=== PATIENT | male | born 2000 | race Caucasian/White ===

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

== ENCOUNTER 2024-09-18 13:47 | Emergency (ER) | payer BC, SELFPAY ==
[2024-09-18 14:16] VITALS: BP 124/75; PULSE 66; RESP 20; TEMP 36.3; O2SAT 98
--- NOTE | 2024-09-18 14:45 | ED.GENADULT ---
HPI - General Adult General Chief complaint: Skin/Abscess/Foreign Body Stated complaint: discolored toe Time Seen by Provider: 09/18/24 14:45 Source: patient, RN notes reviewed and old records reviewed Mode of arrival: ambulatory Limitations: no limitations History of Present Illness [facility] narrative: 24-year-old male presents to the [facility] with complaints of discoloration to great toe and lateral aspect of the distal foot when he takes his boots off. States that he wear steel toe boots. Has a callus in place to the great toe. No discoloration that he describes on exam. Denies any pain, numbness. Onset (ago): week(s) (2) Related Data Home Medications ?Medication ?Instructions ?Recorded ?Confirmed ?Last Taken ?Type olanzapine 15 mg tablet 15 mg PO DAILY 10/29/22 11/11/23 Unknown History Allergies Allergy/AdvReac Type Severity Reaction Status Date / Time No Known Allergies Allergy Verified 09/18/24 14:37 Review of Systems Review of Systems: All systems reviewed & are unremarkable except as noted in HPI and below Constitutional: Constitutional: Reports no additional constitutional complaints ENT: Reports system reviewed and no additional complaints, except as documented Cardiovascular: Cardiovascular: Reports no additional cardiovascular complaints, Denies chest pain and Denies dyspnea Respiratory: Respiratory: Reports no additional respiratory complaints, Denies chest congestion, Denies cough and Denies dyspnea Gastrointestinal: Gastrointestinal: Reports no additional gastrointestinal complaints, Denies abdominal pain, Denies nausea and Denies vomiting Musculoskeletal: Musculoskeletal: Reports no additional musculoskeletal complaints Integumentary/Breasts: Skin/Breast: Reports as per HPI [facility] Past Medical History Medical History Healthy adult male Surgical History Surgical History No history of previous surgery Social History Social History Smoking status: Current every day smoker Tobacco type: e-cigarettes/vaping Alcohol intake: current Substance use type: marijuana Lack of Transportation: No Lack of Food: Never True Current Housing: I Have Housing Concerned About Future Housing: No Difficulty Paying Gas/Electric Bills: No Difficulty Paying for Meds: No Currently Unemployed: No Education: High School Diploma/GED Difficulty w/ Childcare or Family Care: No Comments At the time of my signature, I reviewed and agree with the nursing past medical, surgical, social, and family history. There is no relevant family history pertinent to the patient complaint. Exam Const: General: cooperative, healthy appearing, comfortable, no acute distress, well developed, alert and well nourished Nutritional Appearance: well nourished Orientation/consciousness: patient oriented x3 Limitations: no limitations HENMT: Head: normal to inspection Eyes: General: appearance normal, both eyes and all related structures Alignment and Position: alignment normal Periorbital: periorbital findings normal Neck: Neck: normal visual inspection, full ROM, no lymphadenopathy and no meningeal signs Chest: Chest palpation & inspection: normal inspection of the chest Resp: Effort & Inspection: normal respiratory effort and able to speak in complete sentences Cardio: Rate: regular rate Skin: General skin exam: normal color and no rashes or lesions noted Lesions: no lesions Rashes: no rashes Wounds: no wounds Neuro: General: patient oriented x3, gait normal, tone normal, moves all extremities and no meningeal signs Cognition (Neuro): normal cognition Speech: normal speech Gait exam (Neuro): Normal gait present Extrem: General: normal to inspection, full ROM, capillary refill normal and normal gait Psych: Appearance: grossly normal and well kempt Mental Status: mental status grossly normal Speech and movement: Normal speech and movement present and Clear speech present Affect: normal affect Attitude: cooperative Course Course Level of Care: Express Care Visit Vital Signs Vital signs: Vital Signs Temperature 97.4 F L 09/18/24 14:16 Pulse Rate 66 09/18/24 14:16 Respiratory Rate 20 09/18/24 14:16 Blood Pressure 124/75 09/18/24 14:16 Pulse Oximetry 98 09/18/24 14:16 Temperature 97.4 F L 09/18/24 14:16 Pulse Rate 66 09/18/24 14:16 Respiratory Rate 20 09/18/24 14:16 Blood Pressure 124/75 09/18/24 14:16 Pulse Oximetry 98 09/18/24 14:16 Reviewed Medical Decision Making MDM Narrative Medical decision making narrative: Patient sitting comfortably in exam room. Nontoxic, vitals stable. Patient in no acute distress Patient presents for discoloration when he takes his steel toe boots off after work. No abnormal findings noted on exam Discussed possibly wearing a wider shoe, following up with primary care provider if symptoms continue Discharge instructions reviewed with patient, as well as provided in writing per nursing staff. The instructions also include specific and strict return/GO TO THE ER as well as f/u information. All questions have been answered, and the patient deny any further questions with discharge and discharge plan. Some parts of this dictation were generated by voice recognition software and may contain typographical and/or grammatical inaccuracies. Medical Records Medical records reviewed: Yes I reviewed the external patient's medical records. Vital Signs Vital Signs: Vital Signs Temperature 97.4 F L 09/18/24 14:16 Pulse Rate 66 09/18/24 14:16 Respiratory Rate 20 09/18/24 14:16 Blood Pressure 124/75 09/18/24 14:16 Pulse Oximetry 98 09/18/24 14:16 Temperature 97.4 F L 09/18/24 14:16 Pulse Rate 66 09/18/24 14:16 Respiratory Rate 20 09/18/24 14:16 Blood Pressure 124/75 09/18/24 14:16 Pulse Oximetry 98 09/18/24 14:16 Reviewed Lab Data Lab results reviewed: Yes I reviewed the patient's lab results. Labs: Reviewed Critical Care Time Critical Care Time Critical Care Time: No Discharge Plan Discharge Clinical Impression: Callus of toe Patient Disposition: Home, Self-Care Condition: Stable Additional Instructions: Change socks daily. Tried changing the issues you wear to a wider shoe. Follow-up with primary care provider if symptoms persist For new or worsening symptoms go directly to the emergency room Patient Language: Latvian Prescriptions: No Action olanzapine 15 mg tablet 15 mg PO DAILY Follow-up/Referrals: Karen,Clark Zapata PA-C [Primary Care Provider] - 1 Week ([facility] follow-up) Stand Alone Forms: Work/School Release IP Time of Disposition: 14:54
--- OUTSIDE RECORDS SUMMARY | 2024-09-27 20:40 | XMS_ITS | Encounter Summary ---
Author Organization [facility] Address [address] [place] [address] Care Team Providers Care Apparel Manager Name Role Phone Lulu Orr MD Unavailable Lulu Orr MD Primary Care Provider [phone] Reason for Visit * Reason Comments Sore Throat x 1 day c/o sore thr oat, headache, nausea. Encounter Details Date Type Department Care Team (Late st Contact Info) Description 06/13/2013 10:45 AM CDT Office Visit [facility] - Pediatrics [address] [place] [phone] Lulu Orr MD [address] [place] [phone] Acute pharyngitis (Primary Dx) Social History Tobacco Use Types Packs/Day Years Used Date Smoking Tobacco: Never Assessed Sex and Gender Information Value Date Recorded Sex Assigned at Not on file Gender Identity Not on file Sexual Orientation Not on file documented as of this encounter Last Filed Vital Signs Vital Sign Reading Time Taken Comments Blood Pressure - - Pulse - - Temperature 36.9 ??C (98.4 ??F) 06/13/2013 10:51 AM C DT Respiratory Rate - - Oxygen Saturation - - Inhaled Oxygen Concentration - - Weight 36.7 kg (80 lb 12.8 oz) 06/13/2013 10:51 AM CDT Height - - Body Mass Index - - documented in this encounter Patient Instructions * Patient Instructions* Lulu Orr MD - 06/13/2013 11:06 AM CDT Hector Alonzo most likely has viral sore throat, he tested negative for strep test here in the office, we have send off a throat culture which will be back in 3 days. We will call you with the results. In the mean while, if your child is older than 4 years, give him lozenges, and have him do salt andwater gargles for pain relief. For younger children cold liquids and ice cream numbs the pain and helps them stay hydrated. Use tylenol per dose chart for pain and fever as needed every four hours. Many prescription and over the counter medicines contain Tylenol (acetaminophen) and Advil( ibuprofen) Do not use/give more than one Tylenol or Advil containing product at a time. documented in this encounter Progress Notes * Alina Espinoza RN - 06/16/2013 9:36 AM CDTQuick Note: Phone call placed to patient's home to report negative throat culture results. No answer. Message left reporting the result and to notify office for any further questions or concerns. * Lulu Orr MD - 06/16/2013 9:01 AM CDTQuick Note: Please call the parent and let him/her know the results are normal. * Lulu Orr MD - 06/13/2013 1:49 PM CDT SUBJECTIVE: Hector Alonzo is a 13 y.o.brought by mother who complains of sore throat for 1 day(s) with feeling nauseous, no vomiting or diarrhea. Fever: No Headache:Yes Stomach ache:Yes URI symptoms: No, OBJECTIVE: Temp 98.4 ??F (Temporal Artery) Wt 36.651 kg (80 lb 12.8 oz) General appearance: alert, well appearing, and in no distress. Ears: bilateral TM's and external ear canals normal Nose: normal and patent, no erythema, discharge or polyps Oropharynx: erythematous and mucous membranes moist, pharynx normal without lesions Neck: supple, no significant adenopathy Lungs: clear to auscultation, no wheezes, rales or rhonchi, symmetric air entry Heart - regular rate and rhythm, normal S1 and S2, no murmurs Abdomen:NT, ND, normal BS's, no HSM ASSESSMENT: Pharyngitis possible Strep throat PLAN: See orders for this visit as documented in the electronic medical record Strep culture sent Symptomatic treatment discussed. documented in this encounter Plan of Treatment Not on file documented as of this encounter Procedures Procedure Name Priority Date/Time Associated Diagnosis Comments CULTURE STREP GROUP A Routine 06/13/2013 11:10 AM CDT Acute pharyngitis STREP A SCREEN - POINT OF CARE (AMB) Routine 06/13/2013 11:06 AM CDT Acute pharyngitis documented in this encounter Results * CULTURE STREP GROUP A (06/13/2013 11:10 AM CDT) Beta-Strep Culture, Group A Only Negative [facility] ACCOUNT BILL Miscellaneous samples (specimen) ENTIRE THROAT (SURFACE REGION OF NECK) / Unknown 06/13/2013 11:10 AM CDT 06/13/2013 9:15 PM CDT Narrative Resulting Agency Comment [facility] [address] ??[facility] [id number] Lulu Orr MD LAB - MICROBIOLOGY O RDERABLES [facility] ACCOUNT BILL * STREP A SCREEN - POINT OF CARE (AMB) (06/13/2013 11:06 AM CDT) Strep A Rapid POCT Negative Negative Strep A Internal Control NEGATIVE - POSITIVE Throat swab (specimen) ENTIRE THROAT (SURFACE REGION OF NECK) / Unknown Lulu Orr MD LAB - POINT OF CARE ORDERABLES documented in this encounter Visit Diagnoses Diagnosis Acute pharyngitis- Primary documented in this encounter Care Teams Apparel Manager Relationship Specialty Start Date End Date Lulu Orr MD PCP - Pediatrics 10/29/09 Lluu Orr MD PCP - General Pediatrics 09/30/11 04/02/14 documented as of this encounter
--- OUTSIDE RECORDS SUMMARY | 2024-09-27 20:40 | XMS_ITS | Encounter Summary ---
Author Organization [facility] Address [address] [place] [address] Care Team Providers Care It Telecom Technician Name Role Phone Lulu Orr MD Unavailable Lulu Orr MD Primary Care Provider [phone] Reason for Visit * Reason Comments Sore Throat Encounter Details Date Type Department Care Team (Late st Contact Info) Description 03/04/2013 9:40 AM CDT Office Visit [facility] - Pediatrics [address] [place] [phone] Lulu Orr MD [address] [place] [phone] Acute pharyngitis (Primary Dx); Tinea cruris Social History Tobacco Use Types Packs/Day Years Used Date Smoking Tobacco: Never Assessed Sex and Gender Information Value Date Recorded Sex Assigned at Not on file Gender Identity Not on file Sexual Orientation Not on file documented as of this encounter Last Filed Vital Signs Vital Sign Reading Time Taken Comments Blood Pressure - - Pulse - - Temperature 36.6 ??C (97.8 ??F) 03/04/2013 9:55 AM CD T Respiratory Rate - - Oxygen Saturation - - Inhaled Oxygen Concentration - - Weight 35.7 kg (78 lb 9.6 oz) 03/04/2013 9:55 AM CDT Height - - Body Mass Index - - documented in this encounter Patient Instructions * Patient Instructions* Lulu Orr MD - 03/04/2013 10:09 AM CDT Hector Alonzo most likely has [...] or Advil containing product at a time. Tinea Corporis( Ring Worm) Ring Worm is a skin infection. Although the infection looks like you have a worm under your skin, there is no worm. Ringworm may appear anywhere on the body except the scalp (head), feet, or hands. This infection happens most often in school or daycare children and athletes, but anyone can get it. It is spread by touching infected people, pets, or soil. Ringworm can be treated by taking medicine and keeping your skin clean and dry. With medicine, your ringworm infection will be gone in about two weeks. Use Lotrimin cream twice a day for 10- 14 days, use it for a few more days till after the rash clears up. The infection can live in the bottom layer of skin and may come back, if you stop using the medicine too soon. documented in this encounter Progress Notes * Alina Espinoza RN - 03/07/2013 10:14 AM CDTQuick Note: Phone call placed to patient's home to report negative throat culture results. No answer. Message left reporting the result and to notify office for any further questions or concerns. * Lulu Orr MD - 03/07/2013 9:45 AM CDTQuick Note: Please call the parent and let him/her know the results are normal. * Lulu Orr MD - 03/04/2013 9:56 AM CDT SUBJECTIVE: Hector Alonzo is a 12 y.o.brought by mother who complains of sore throat for 4 day(s). Fever: No Headache:Yes Stomach ache:No URI symptoms: Yes, cough since Wednesday He also has some dry skin on the shaft of his penis they did not know what they could put on it. OBJECTIVE: Temp 97.8 ??F (Temporal Artery) Wt 78 lb 9.6 oz (35.653 kg) General appearance: alert, well appearing, and in no distress. Ears: bilateral TM's and external ear canals normal Nose: normal and patent, no erythema, discharge or polyps Oropharynx: mucous membranes moist, pharynx normal without lesions Neck: supple, no significant adenopathy Lungs: clear to auscultation, no wheezes, rales or rhonchi, symmetric air entry Heart - regular rate and rhythm, normal S1 and S2, no murmurs Skin: erythematous scaly patch at the base of penis, extending some towards penis ASSESSMENT: Pharyngitis possible Strep throat Tinea Cruris PLAN: See orders for this visit as documented in the electronic medical record Strep culture sent Lotrimin cream local bid for 14 days. Symptomatic treatment discussed. documented in this encounter Plan of Treatment Not on file documented as of this encounter Procedures Procedure Name Priority Date/Time Associated Diagnosis Comments CULTURE STREP GROUP A Routine 03/04/2013 10:15 AM CDT Acute pharyngitis Tinea cruris STREP A SCREEN - POINT OF CARE (AMB) Routine 03/04/2013 10:13 AM CDT Acute pharyngitis Tinea cruris documented in this encounter Results * CULTURE STREP GROUP A (03/04/2013 10:15 AM CDT) Beta-Strep Culture, Group A Only Negative [facility] ACCOUNT BILL Miscellaneous samples (specimen) ENTIRE THROAT (SURFACE REGION OF NECK) / Unknown 03/04/2013 10:15 AM CDT 03/04/2013 5:44 PM CDT Narrative Resulting Agency Comment [facility] [place] [address] ??[facility] [id number] Lulu Orr MD LAB - MICROBIOLOGY O RDERABLES [facility] ACCOUNT BILL * STREP A SCREEN - POINT OF CARE (AMB) (03/04/2013 10:13 AM CDT) Strep A Rapid POCT Negative Negative Strep A Internal Control NEGATIVE - POSITIVE Throat swab (specimen) ENTIRE THROAT (SURFACE REGION OF NECK) / Unknown Lulu Orr MD LAB - POINT OF CARE ORDERABLES documented in this encounter Visit Diagnoses Diagnosis Acute pharyngitis- Primary Tinea cruris Dermatophytosis of groin and perianal area documented in this encounter Care Teams It Telecom Technician Relationship Specialty Start Date End Date Lulu Orr MD PCP - Pediatrics 10/29/09 Lulu Orr MD PCP - General Pediatrics 09/30/11 04/02/14 documented as of this encounter
--- OUTSIDE RECORDS SUMMARY | 2024-09-27 20:40 | XMS_ITS | Encounter Summary ---
Author Organization [facility] Address [address] [place] [address] Care Team Providers Care Customer Advisor Specialist Name Role Phone Lulu Orr MD Unavailable Tal Cuenca MD Primary Care Provider [phone] Reason for Visit * Reason Comments Pain Abdominal symptoms started yes terday Headache Cough Chills unsure of any fever Encounter Details Date Type Department Care Team (Late st Contact Info) Description 12/10/2014 2:30 PM CDT Office Visit [facility] - Pediatrics [address] [place] [phone] Tal Cuenca MD [address] [place] [address] [place] [phone] Viral pharyngitis (Primary Dx) Social History Tobacco Use Types Packs/Day Years Used Date Smoking Tobacco: Never Assessed Sex and Gender Information Value Date Recorded Sex Assigned at Not on file Gender Identity Not on file Sexual Orientation Not on file documented as of this encounter Last Filed Vital Signs Vital Sign Reading Time Taken Comments Blood Pressure - - Pulse - - Temperature 37 ??C (98.6 ??F) 12/10/2014 2:40 PM CDT Respiratory Rate - - Oxygen Saturation - - Inhaled Oxygen Concentration - - Weight 47.4 kg (104 lb 6.4 oz) 12/10/2014 2:40 P M CDT Height 165.7 cm (5' 5.25 ) 12/10/2014 2:40 PM CD T Body Mass Index 17.24 12/10/2014 2:40 PM CDT Body Mass Index Percentile 22.42% 12/10/2014 2:4 0 PM CDT Growth Chart: [facility] (Boys, 2-2 0 Years) documented in this encounter Patient Instructions * Patient Instructions* Tal Cuenca MD - 12/10/2014 3:36 PM CDT Supportive care reviewed. Discussed reasons to call back. Follow up as needed. Rest, tylenol, humidifier, etc documented in this encounter Progress Notes * Tal Cuenca MD - 12/10/2014 2:59 PM CDT Hector Alonzo, 14 y.o., male here with a complaint of nausea, headache, abdominal pain, and coughing. Pt has been ill for 2 days. Tactile fever. No V/D. Medications: none PE: Temp(Src) 98.6 ??F (Oral) Wt 47.356 kg (104 lb 6.4 oz) BMI 17.25 kg/m2 , Alert, NAD, HEENT: Ears Right: Normal Left: Normal Nose Discharge clear Throat injected Neck normal, neck supple, trachea midline, no significant adenopathy Chest: no increased work of breathing Lungs Respiratory effort normal, clear to auscultation, normal breath sounds bilaterally Heart Normal PMI. regular rate and rhythm, normal S1, S2, no murmurs or gallops. No results found for this visit on 12/10/14. Impression: ICD-9-CM 1. Viral pharyngitis 462 Plan: Supportive care reviewed. Discussed reasons to call back. Follow up as needed. Rest, tylenol, humidifier, etc documented in this encounter Plan of Treatment Not on file documented as of this encounter Visit Diagnoses Diagnosis Viral pharyngitis- Primary Acute pharyngitis documented in this encounter Care Teams Customer Advisor Specialist Relationship Specialty Start Date End Date Lulu Orr MD PCP - Pediatrics 10/29/09 Tal Cuenca MD PCP - General Pediatrics 04/03/14 04/08/15 documented as of this encounter
--- OUTSIDE RECORDS SUMMARY | 2024-09-27 20:40 | XMS_ITS | Encounter Summary ---
Author Organization [facility] Address [address] [place] [address] Care Team Providers Care Hatchery Manager Name Role Phone Lulu Orr MD Unavailable Donna Pacheco MD Primary Care Provider [phone] Encounter Details Date Type Department Care Team (Late st Contact Info) Description 02/19/2017 Orders Only [facility] - Pediatrics [address] [place] [phone] Donna Pacheco MD [address] [place] [phone] Social History Tobacco Use Types Packs/Day Years Used Date Smoking Tobacco: Never Smokeless Tobacco: Never Alcohol Use Standard Drinks/Week Comments Not Asked 0 (1 standard drink = 0.6 oz pur e alcohol) Sex and Gender Information Value Date Recorded Sex Assigned at Not on file Gender Identity Not on file Sexual Orientation Not on file documented as of this encounter Progress Notes * Heather Jasso RN - 02/24/2017 8:51 AM CDT Left message with son to have mom or dad call office for results. * Andreas Queen DO - 02/23/2017 8:27 PM CDT Call and tell throat culture neg. documented in this encounter Plan of Treatment Not on file documented as of this encounter Goals Goal Patient Goal Type Associated Problems Recent Progress Patient-Stated? Author Use safety retraint in car Lifestyle Not on track( 018 2:17 PM CDT) No Alina Ruffin RN documented as of this encounter Procedures Procedure Name Priority Date/Time Associated Diagnosis Comments CULTURE RESPIRATORY UPPER 02/19/2017 4:13 PM CDT documented in this encounter Results * CULTURE RESPIRATORY UPPER (02/19/2017 4:13 PM CDT) [facility] Upper Respiratory Culture Final report [facility] ACCOUNT BILL Result 1 [facility] ACCOUNT BILL Comment:Routine respiratory lexii 02/19/2017 4:13 PM CDT 02/19/2017 Narrative Resulting Agency Comment [facility] [address] ??[facility] [phone] Donna Pacheco MD LAB - MICROBIOLOGY O RDERABLES [facility] ACCOUNT BILL [address] [place] [address] documented in this encounter Visit Diagnoses Not on filedocumented in this encounter Care Teams Hatchery Manager Relationship Specialty Start Date End Date Lulu Orr MD PCP - Pediatrics 10/29/09 Donna Pacheco MD PCP - General Pediatrics 04/09/15 documented as of this encounter
--- OUTSIDE RECORDS SUMMARY | 2024-09-27 20:40 | XMS_ITS | Clinical Summary ---
Author Organization [facility] [employer] Address [address] [place] [address] Care Team Providers Care Oracle Fusion Consultant Name Role Phone Lulu Orr MD Unavailable Donna Pacheco MD Primary Care Provider [phone] Source Comments [facility],non-owned Affiliates and Associated Physician Practices is amultiple site organization consisting of ambulatory clinics and hospital sitesin [place], [place], [place] and [place]. This disclosure is being madepursuant to the Care Everywhere program and may not contain all information available regarding this patient. Last updated 18.[employer] Allergies No known active allergies Medications Be aware that medications may not be up to date on this document. Always verify current medications with the patient. 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 (AF LURIA, FLUZONE TRIVALENT; 6MO+) (IIV3) 10/01/2011 DTaP VACCINE IM (6wk-6yrs) 02/19/2006,,2001,08/17,2001 HEP A PEDS 2 DOSE 10/30/2014,04/12/2014 HEP B VACCINE, PED/ADOL 2001,2001, HIB BOOSTER 07/05/2002, 2,2001,06/09 Human Papilloma Virus Tabby valent Vaccine 10/30/2014,06/18/2014,04/12/2014 INFLUENZA 07/28/2008,08/15/2007,09/30/2006 INFLUENZA A [id number] VACCINE 10/02/2009, 9 INFLUENZA VACCINE, QUADR. (A FLURIA, FLUZONE QUADRIVALENT; 6MO+) (IIV4) 08/13/2016 INFLUENZA VACCINE, QUADR. (F LUZONE; FLULAVAL; FLUARIX; AFLURIA QUADRIVALENT; 6MO+), 0.5 ML (IIV4) 08/01/2017 Influenza Nasal 07/23/2012,08/05/2010 MENINGOCOCCAL CONJUGATE (MCV4P) 02/24/2018,04/12 MMR 02/19/2006,07/05/2002 PNEUMOCOCCAL CONJ, PEDS 03/26/2003,04/12,01/09/2002,10/10 POLIO IPV 02/19/2006, 2,2001,06/09 PPD 02/19/2006,03/26/2003 TDAP (7yrs+) 05/06/2012 VARICELLA 07/05/2002 Social History Tobacco Use Types Packs/Day Years Used Date Smoking Tobacco: Never Smokeless Tobacco: Never Alcohol Use Standard Drinks/Week Comments Not Asked 0 (1 standard drink = 0.6 oz pur e alcohol) Sex and Gender Information Value Date Recorded Sex Assigned at Not on file Gender Identity Not on file Sexual Orientation Not on file Last Filed Vital Signs Vital Sign Reading Time Taken Comments Blood Pressure 120/75 02/24/2018 2:16 PM CDT Pulse 69 02/24/2018 2:16 PM CDT Temperature 37.1 ??C (98.7 ??F) 10/15/2017 3:50 PM CS T Respiratory Rate - - Oxygen Saturation 100% 10/15/2017 3:50 PM WAX MACHINE OPERATOR Inhaled Oxygen Concentration - - Weight 59.1 kg (130 lb 6.4 oz) 02/24/2018 2:16 P M CDT Height 175.9 cm (5' 9.25 ) 02/24/2018 2:16 PM CD T Body Mass Index 19.12 02/24/2018 2:16 PM CDT Plan of Treatment Health Maintenance Due Date Last Done Comments HIV SCREENING 2016 HEPATITIS C SCREENING 04/04/2019 DTAP/TDAP/TD VACCINES (7 - T d or Tdap) 05/06/2022 05/06/2012, 02/19/2006, 07/05/2002, Additional history exists DEPRESSION SCREENING 10/04/2023 COVID-19 VACCINE (1 - 2023-2 5 season) 2024 INFLUENZA VACCINE (#1) 2024 7, 08/13/2016, 07/23/2012, Additional history exists ZOSTER VACCINE (1 of 2) 2051 HEPATITIS B VACCINE Completed 2001, 2001, 2001 HIB VACCINE Completed 07/05/2002, 04/2002, 2001, Additional history exists PNEUMOCOCCAL VACCINE Completed 03/26/2003, 04/12/2002, 01/09/2002, Additional history exists HPV VACCINE Completed 10/30/2014, 06/04, 04/12/2014 MENINGOCOCCAL VACCINE Completed 02/24/2018, 014 Goals Goal Patient Goal Type Associated Problems Recent Progress Patient-Stated? Author Use safety retraint in car Lifestyle Not on track( 018 2:17 PM CDT) No Alina Ruffin RN Care Teams Oracle Fusion Consultant Relationship Specialty Start Date End Date Lulu Orr MD PCP - Pediatrics 10/29/09 Donna Pacheco MD PCP - General Pediatrics 04/09/15
--- OUTSIDE RECORDS SUMMARY | 2024-09-27 20:40 | XMS_ITS | Referral Summary ---
Author Organization [facility] [employer] Address [address] [place] [address] Care Team Providers Care Environmental Scientists Name Role Phone Lulu Orr MD Unavailable Donna Pacheco MD Primary Care Provider [phone] Source Comments [facility] [employer]non-owned Affiliates and Associated Physician Practices is amultiple site organization consisting of ambulatory clinics and hospital sitesin [place], [place], [place] and [place]. This disclosure is being madepursuant to the Care Everywhere program and may not contain all information available regarding this patient. Last updated 18.[facility] [employer] Allergies No known active allergies Medications Be [...] valent Vaccine 10/30/2014,06/18/2014,04/12/2014 INFLUENZA 07/28/2008,08/15/2007,09/30/2006 INFLUENZA A [id number] VACCINE 10/02/2009, 9 INFLUENZA VACCINE, QUADR. (A [...] - Oxygen Saturation 100% 10/15/2017 3:50 PM WHEEL BRAIDER Inhaled Oxygen Concentration - - Weight 59.1 kg (130 lb 6.4 oz) 02/24/2018 2:16 P M CDT Height 175.9 cm (5' 9.25 ) 02/24/2018 2:16 PM CD T Body Mass Index 19.12 02/24/2018 2:16 PM CDT Plan of Treatment Not on file Goals Goal Patient Goal Type Associated Problems Recent Progress Patient-Stated? Author Use safety retraint in car Lifestyle Not on track( 018 2:17 PM CDT) Alina Weston, ERNESTO Care Teams Environmental Scientists Relationship Specialty Start Date End Date Lulu Orr MD PCP - Pediatrics 10/29/09 Donna Pacheco MD PCP - General Pediatrics 04/09/15
--- OUTSIDE RECORDS SUMMARY | 2024-09-27 20:40 | XMS_ITS | Encounter Summary ---
Author Organization [facility] Address [address] [place] [address] Care Team Providers Care Rn Long Term Care Name Role Phone Lulu Orr MD Unavailable Lulu Orr MD Primary Care Provider [phone] Reason for Visit * Reason Comments Sore Throat Encounter Details Date Type Department Care Team (Late st Contact Info) Description 04/01/2012 1:10 PM CDT Office Visit [facility] - Pediatrics [address] [place] [phone] Lulu Orr MD [address] [place] [id number] Acute pharyngitis (Primary Dx) Social History Tobacco [...] - - Temperature 37 ??C (98.6 ??F) 04/01/2012 1:37 PM CDT Respiratory Rate - - Oxygen Saturation - - Inhaled Oxygen Concentration - - Weight - - Height - - Body Mass Index - - documented in this encounter Patient Instructions * Patient Instructions* Lulu Orr MD - 04/01/2012 1:36 PM CDT Hector Alonzo most likely has viral sore throat, he tested negative for strep test here in the office, we have send off a throat culture which will be back in 2 days. We will call you with the results. In the mean while, please give him lozenges, and have him do salt and water gargles for pain relief. Use tyelenol per dose chart for pain and fever as needed every four hours. Many prescription and over the counter medicines contain Tylenol (acetaminophen) and Advil( ibuprofen) Do not use/give more than one Tylenol or Advil containing product at a time. documented in this encounter Progress Notes * Heather Jasso RN - 04/05/2012 9:01 AM CDTQuick Note: Left message regarding normal strep results--LB * Heather Jasso RN - 04/04/2012 4:09 PM CDTQuick Note: Hector answered phone and stated his parents would be home in about 2 hours. Did not leave message. * Heather Jasso RN - 04/04/2012 10:19 AM CDTQuick Note: Spoke with child at home number. He said to call back at 6 or 7 when his parents would be home. * Lulu Orr MD - 04/04/2012 9:34 AM CDTQuick Note: Please call the parent and let him/her know the results are normal. * Lisa Munoz - 04/01/2012 1:09 PM CDT SUBJECTIVE: Hector Alonzo is a 11 y.o.brought by father who complains of sore throat for 1 day(s). Has coughed some yellow specs that he thought was food. Parents looked at throat and noted swelling. Pt has pain w/ swallowing. Fever: No Headache:Yes Stomach ache:No URI symptoms: No coryza, otalgia, chest pain. Pt also c/o abdominal pain w/ palpation. BMs every two days. Drinks lots of milk and water. No diarrhea. OBJECTIVE: There were no vitals taken for this visit. BP 118/77 HR 92 Wt 69.8 lb General appearance: alert, well appearing, and in no distress, oriented to person, place, and time,normal appearing weight and playful, active. Ears: bilateral TM's and external ear canals normal Nose: normal and patent, no erythema, discharge or polyps Oropharynx: No exudate noted, mucous membranes moist, pharynx normal without lesions and tonsils hypertrophied (Left > Right), not erythematous Neck: supple, no significant adenopathy Lungs: clear to auscultation, no wheezes, rales or rhonchi, symmetric air entry Heart - regular rate and rhythm, normal S1 and S2, no murmurs Abdomen:Soft, No Pulsatile Masses, ND, normal BS's, no HSM, mild TTP in LUQ. ASSESSMENT: Pharyngitis possible Strep throat PLAN: See orders for this visit as documented in the electronic medical record Strep culture sent Symptomatic treatment discussed. documented in this encounter Plan of Treatment Not on file documented as of this encounter Procedures Procedure Name Priority Date/Time Associated Diagnosis Comments CULTURE STREP GROUP A Routine 04/01/2012 1:39 PM CDT Acute pharyngitis STREP A SCREEN - POINT OF CARE (AMB) Routine 04/01/2012 1:36 PM CDT Acute pharyngitis documented in this encounter Results * CULTURE STREP GROUP A (04/01/2012 1:39 PM CDT) Beta-Strep Culture, Group A Only Negative [facility] ACCOUNT BILL Miscellaneous samples (specimen) ENTIRE THROAT (SURFACE REGION OF NECK) / Unknown 04/01/2012 1:39 PM CDT 04/01/2012 9:02 PM CDT Narrative Resulting Agency Comment [facility] [address] ??[facility] [phone] Lulu Orr MD LAB - MICROBIOLOGY O RDERABLES [facility] ACCOUNT BILL * STREP A SCREEN - POINT OF CARE (AMB) (04/01/2012 1:36 PM CDT) Strep A Rapid POCT Negative Negative Strep A Internal Control NEGATIVE - POSITIVE Throat swab (specimen) ENTIRE THROAT (SURFACE REGION OF NECK) / Unknown Lulu Orr MD LAB - POINT OF CARE ORDERABLES documented in this encounter Visit Diagnoses Diagnosis Acute pharyngitis- Primary documented in this encounter Care Teams Rn Long Term Care Relationship Specialty Start Date End Date Lulu Orr MD PCP - Pediatrics 10/29/09 Lulu Orr MD PCP - General Pediatrics 09/30/11 04/02/14 documented as of this encounter
--- OUTSIDE RECORDS SUMMARY | 2024-09-27 20:40 | XMS_ITS | Encounter Summary ---
Author Organization [facility] Address [address] [place] [address] Care Team Providers Care Gyroscopic Engineering Technician Name Role Phone Lulu Orr MD Unavailable Donna Pacheco MD Primary Care Provider [phone] Reason for Visit * Reason Onset Date Comments Complete Physical Exam 01/22/2017 Encounter Details Date Type Department Care Team (Late st Contact Info) Description 01/22/2017 1:20 PM CDT Office Visit [facility] - Pediatrics [address] [facility] [address] [place] [phone] [place] [address] [place] [phone] Encounter for routine child health examination without abnormal findings (Primary Dx); Chronic low back pain without sciatica, unspecified back pain laterality Social History Tobacco Use Types Packs/Day Years [...] Sign Reading Time Taken Comments Blood Pressure 132/72 01/22/2017 1:03 PM CDT Pulse 80 01/22/2017 1:03 PM CDT Temperature 36.9 ??C (98.4 ??F) 01/22/2017 1:03 PM CD T Respiratory Rate - - Oxygen Saturation - - Inhaled Oxygen Concentration - - Weight 59.2 kg (130 lb 9.6 oz) 01/22/2017 1:03 P M CDT Height 174 cm (5' 8.5 ) 01/22/2017 1:03 PM CDT Body Mass Index 19.57 01/22/2017 1:03 PM CDT Body Mass Index Percentile 37.60% 01/22/2017 1:0 3 PM CDT Growth Chart: CDC (Boys, 2-2 0 Years) documented in this encounter Patient Instructions * Patient Instructions* Alina Espinoza RN - 01/22/2017 1:05 PM CDT YOUR GROWING CHILD: 15 TO 17 YEARS Child???s Name: Hector Alonzo Today???s Date: 01/22/2017 BP 132/72 Pulse 80 Temp 98.4 ??F (Temporal Artery) Ht 1.74 m (5' 8.5 ) Wt 59.2 kg (130 lb 9.6 oz) BMI 19.57 kg/m2 Wt Readings from Last 1 Encounters: 01/22/17 59.2 kg (130 lb 9.6 oz) (47 %, Z= -0.08)* * Growth percentiles are based on CDC 2-20 Years data. 47 %ile (Z= -0.08) based on CDC 2-20 Years [id number] data using vitals from 01/22/2017. Ht Readings from Last 1 Encounters: 01/22/17 1.74 m (5' 8.5 ) (56 %, Z= 0.14)* * Growth percentiles are based on CDC 2-20 Years data. 56 %ile (Z= 0.14) based on CDC 2-20 Years [id number] data using vitals from 01/22/2017. IMMUNIZATIONS One of the best ways to insure continued good health for your child is through a program of regularimmunizations. Many contagious diseases have now been controlled by immunizations. We routinely immunize children at the time of their regular checkups. It is important for you to keep a record of all immunizations given. This information will be of value to you in the care of your child in the future. We will provide you a copy of your immunization record at each of your visits. WHAT TO EXPECT Talk with your child after school about their day, what they liked, what they didn???t like, and ifthey have any concerns. Talk with your child about what to do if they or someone they know is beingbullied. Speak with your child about what they might want to do after high school, where they might want to go to college, and if they have a career in mind. It???s a good idea to give your child chores to do around the house. Some age appropriate chores include: 1. Wash dishes 2. Prepare simple family meals 3. [place] leaves 4. Take the trash out for pick-up 5. Be responsible for feeding and watering the family pet 6. Keep bedroom and designates room in house clean 7. Vacuum individual rooms 8. Be responsible for homework 9. Help younger siblings with their chores Limit TV and electronic device time to 5-6 hours a day. Make sure that your child is active for at least 3 hours a day. Talk to your child about not using cigarettes, using drugs, or drinking alcohol. Make sure that youare familiar with the friends that they are spending time with. Teach your child the importance of delaying sexual behavior and make sure they know that they can ask you any questions that they make have about sexual behaviors. SAFETY POISON CONTROL: (PLEASE POST IN YOUR HOME OR ON YOUR PHONE) There are three ingredients for childhood injuries and accidents: the child, the object, and the environment in which the injury happens. Therefore, you must be aware of all three. Continue to be aware of poisonous hazards in your home, basement, and garage. Establish a plan for leaving the house in case of fire. Alert your children to be careful around strange animals, and to not bother any animal that is eating. Children should now know their name, address, and telephone number. Remind your child about not accepting rides or food from strangers. Helmets should be worn for anything that your child rides on that has wheels or could possibly fallout of or off of including but not limited to: bikes, skates, skate boards, scooters, horses, pogo sticks, etc. CAR SAFETY Please speak with your child about the importance of car safety. Make use that they wear seat beltsat all times while driving or being a passenger. Also speak to them about cell phone usage while driving. The texts and phone calls can WAIT. [place] and [place] law, effective May 31, 2006, says your child must be in a booster seat if they are ages 4 through 7 who weigh at least 40 pounds, unless they are 80 pounds or 4???9?? tall. DO NOT ALLOW ANYONE TO SMOKE AROUND YOUR CHILD. DIET Make sure that your child is eating breakfast in the morning school boat driver. Encourage them to eat at least 3 servings of dairy a day and at least 5 serving of vegetables/fruits per day. Limit candy, soft drinks, and other high fat/calorie food and snacks. TEETH Your child should be established and receiving regular check-ups with a dentist. A daily routine ofbrushing at least twice a day needs to be in place by now. Frequently your child may need some supervision for proper technique. Also, your child should be flossing at least once daily. SLEEP Make sure that your child is getting at least 8-10 hours of sleep a night. Where can I go for more information? [place] [employer] ( ) www.aap.org, HealthyChildren.org www.healthychildren.org Website and free downloadable andrews for smartphones: http://www.MynewMD.[employer]/ and http://www.Diagnostic [employer]ch[employer]/ documented in this encounter Progress Notes * Andreas Queen DO - 01/22/2017 1:15 PM CDT [facility] //////////////////////////////////////////////////////////////////////////////// ////////////////////////////////////////// Reviewed Nurse's school age note DO Note: Phx: back pain- lower back. Ache. For several years. Wake up with pain? No radiation no numbness ortingling. Walking causes some pain. Jogging no pain. No limitations. Same not getting worse. Nothing tried. Popping helps for 1-2 hours then back. Does not complain that much to mom. Medications: none No current outpatient prescriptions on file. No current facility-administered medications for this visit. Exercise/Sports: none School: Grade:10, Grades: good grades. Car safety: Seat Belt ROS: Stomachaches: No Headaches: No Constipation/Diarrhea: No Social- Smoking, drugs, alcohol- denies. Dating- Yes gender neutral partners. He identifies as male. Drinks liquids in evening but not much during the days. Not a healthy eater. More snacks than meals. Sleep- 5-7 hours at night. Physical Exam: Wt Readings from Last 1 Encounters: 01/22/17 59.2 kg (130 lb 9.6 oz) (47 %, Z= -0.08)* * Growth percentiles are based on CDC 2-20 Years data. Ht Readings from Last 1 Encounters: 01/22/17 1.74 m (5' 8.5 ) (56 %, Z= 0.14)* * Growth percentiles are based on CDC 2-20 Years data. Blood pressure percentiles are 92.8 % systolic and 70.6 % diastolic based on NHBPEP's 4th Report. 47 %ile (Z= -0.08) based on CDC 2-20 Years nqfcke-cte-uow data using vitals from 01/22/2017. 56 %ile (Z= 0.14) based on CDC 2-20 Years [id number] data using vitals from 01/22/2017. BP 132/72 Pulse 80 Temp 98.4 ??F (Temporal Artery) Ht 1.74 m (5' 8.5 ) Wt 59.2 kg (130 lb 9.6 oz) BMI 19.57 kg/m2 GENERAL: Alert, NAD EYES: PERRLA, EOMI, red reflex bilaterally EARS: TM's wnl NOSE: nasal passages clear NECK: supple, no masses, no lymphadenopathy RESP: clear to auscultation bilaterally CV: RRR, normal S1/S2, no murmurs, clicks, or rubs. ABD: soft, nontender, no masses, no hepatosplenomegaly, normal bowel sounds : normal male, testes descended bilaterally, no inguinal hernia, no hydrocele Dustin Staging: Pubic Hair - III and Genitalia - III EXTREMITIES: Full range of motion of all extremities SPINE: mild curvature noted. SKIN: no rashes or lesions Impression: 1. Well child with normal growth and development. 2. Back pain- mild curve noted will get scoliosis series. Follow up with results. Plan: Anticipatory guidance discussed included nutrition, safety, dentist, limiting media, exercise. Vaccines: utd BMI> 85%: No Classification of weight: normal Follow up yearly. * Alina Espinoza RN - 01/22/2017 1:05 PM CDT Nurse Adolescent Screen Parental/Patient Concerns: Concerns about frequent complaints of back pain for awhile. Diet: Milk 2%, 0 ounces per day. Vegetables: fair, fruits: poor, Dental: regular dental visits? Yes documented in this encounter Plan of Treatment Scheduled Orders Name Type Priority Associated Diagnoses Orde r Schedule XR SCOLIOSIS 2VW Imaging Routine Chronic low back pain without sciatica, unspecified back pain laterality 1 Occurrences starting 01/22/2017 until 01/22/2018 documented as of this encounter Goals Goal Patient Goal Type Associated Problems Recent Progress Patient-Stated? Author Use safety retraint in car Lifestyle Not on track( 018 2:17 PM CDT) No Alina Ruffin RN documented as of this encounter Visit Diagnoses Diagnosis Encounter for routine child health examination without abnormal findings- Primary Routine or child health check Chronic low back pain without sciatica, unspecified back pain laterality documented in this encounter Care Teams Gyroscopic Engineering Technician Relationship Specialty Start Date End Date Lulu Orr MD PCP - Pediatrics 10/29/09 Donna Pacheco MD PCP - General Pediatrics 04/09/15 documented as of this encounter
--- OUTSIDE RECORDS SUMMARY | 2024-09-27 20:40 | XMS_ITS | Encounter Summary ---
Author Organization [facility] Address [address] [place] [address] Care Team Providers Care Industrial Eng Name Role Phone Lulu Orr MD Unavailable Donna Pacheco MD Primary Care Provider [phone] Encounter Details Date Type Department Care Team (Late st Contact Info) Description 03/30/2017 Orders Only [facility] - Pediatrics [address] [place] [phone] Alina Espinoza RN Chronic low back pain without sciatica, unspecified [...] on file documented as of this encounter Plan of Treatment Not on file documented as of this encounter Goals Goal Patient Goal Type Associated Problems Recent Progress Patient-Stated? Author Use safety retraint in car Lifestyle Not on track( 018 2:17 PM CDT) No Alina Ruffin RN documented as of this encounter Visit Diagnoses Diagnosis Chronic low back pain without sciatica, unspecified back pain laterality documented in this encounter Care Teams Industrial Eng Relationship Specialty Start Date End Date Lulu Orr MD PCP - Pediatrics 10/29/09 Donna Pacheco MD PCP - General Pediatrics 04/09/15 documented as of this encounter
--- OUTSIDE RECORDS SUMMARY | 2024-09-27 20:40 | XMS_ITS | Encounter Summary ---
Author Organization [facility] Address [address] [facility] [address] [place] [address] Care Team Providers Care Movie Shot Cameraman Name Role Phone Lulu Orr MD Unavailable Donna Pacheco MD Primary Care Provider [phone] Reason for Visit * Reason Comments Cough Encounter Details Date Type Department Care Team (Late st Contact Info) Description 10/15/2017 3:45 PM ARCHITECTURE MANAGER Office Visit [facility] - Pediatrics [address] [place] [phone] Donna Pacheco MD [address] [place] [phone] Cough (Primary Dx) Social History Tobacco Use Types [...] Taken Comments Blood Pressure - - Pulse 87 10/15/2017 3:50 PM ARCHITECTURE MANAGER Temperature 37.1 ??C (98.7 ??F) 10/15/2017 3:50 PM CS T Respiratory Rate - - Oxygen Saturation 100% 10/15/2017 3:50 PM ARCHITECTURE MANAGER Inhaled Oxygen Concentration - - Weight 57.3 kg (126 lb 4 oz) 10/15/2017 3:50 PM ARCHITECTURE MANAGER Height - - Body Mass Index - - documented in this encounter Progress Notes * Donna Pacheco MD - 10/15/2017 4:05 PM CST Hector Alonzo is a 17 y.o. male who presents today for a complaint of cough. Cough started abouta month ago. Described as dry. Coughs both day and night. Not waking due to cough. He has coughing fits where he feels like he can't stop. Associated with fever? No Associated with URI sx? Yes -initially he did have runny nose and congestion associated with cough.Those sx have gone away. Post nasal drainage? No Wheezing? No NO shortness of breath Ran today at school and did not cough more with this. Appetite normal Has been tired than usual, but sleep schedule has been off since xmas break. Intervention tried: none PE: Vitals: 10/15/17 1550 Pulse: 87 Temp: 98.7 ??F SpO2: 100% Weight: 57.3 kg (126 lb 4 oz) Gen-well appearing HEENT- throat without erythema or cobblestoning Resp-CTA without crackles or wheeze CV nL S1S2 without murmur Impression: 1. Cough --bacterial vs prolonged post viral. Sx not c/w asthma Plan: going to Rx: azithro to cover for atypicals. Call if not improving ITECTURE MANAGER documented in this encounter Plan of Treatment Not on file documented as of this encounter Goals Goal Patient Goal Type Associated Problems Recent Progress Patient-Stated? Author Use safety retraint in car Lifestyle Not on track( 018 2:17 PM CDT) No Alina Ruffin RN documented as of this encounter Visit Diagnoses Diagnosis Cough- Primary documented in this encounter Care Teams Movie Shot Cameraman Relationship Specialty Start Date End Date Lulu Orr MD PCP - Pediatrics 10/29/09 Donna Pacheco MD PCP - General Pediatrics 04/09/15 documented as of this encounter
--- OUTSIDE RECORDS SUMMARY | 2024-09-27 20:40 | XMS_ITS | Encounter Summary ---
Author Organization [facility] Address [address] [place] [address] Care Team Providers Care Blueprint Processor Name Role Phone Lulu Orr MD Unavailable Tal Cuenca MD Primary Care Provider [phone] Reason for Visit * Reason Comments Imm Inj Encounter Details Date Type Department Care Team (Latest Contact Info) Description 06/18/2014 4:15 PM CDT Clinical Support [facility] - Pediatrics [address] [place] [phone] Need for prophylactic vaccination and inoculation against other viral diseases Social History Tobacco Use Types Packs/Day Years Used Date Smoking Tobacco: Never Assessed Sex and Gender Information Value Date Recorded Sex Assigned at Not on file Gender Identity Not on file Sexual Orientation Not on file documented as of this encounter Plan of Treatment Not on file documented as of this encounter Visit Diagnoses Diagnosis Need for prophylactic vaccination and inoculation against other viral diseases(V04.89)- Primary Need for prophylactic vaccination and inoculation against other viral diseases documented in this encounter Care Teams Blueprint Processor Relationship Specialty Start Date End Date Lulu Orr MD PCP - Pediatrics 10/29/09 Tal Cuenca MD PCP - General Pediatrics 04/03/14 04/08/15 documented as of this encounter
--- OUTSIDE RECORDS SUMMARY | 2024-09-27 20:40 | XMS_ITS | Encounter Summary ---
Author Organization [facility] Address [address] [facility] [place] [address] Care Team Providers Care Women Specialist Name Role Phone Lulu Orr MD Unavailable Donna Pacheco MD Primary Care Provider [phone] Encounter Details Date Type Department Care Team (Late st Contact Info) Description 05/12/2017 9:23 AM CDT - 05/12/2017 11:59 PM CDT Hospital Encounter [facility] Pediatrics - Radiology [address] [place] [address] Magdaleno Goodwin MD [address] [facility] [place] [id number] Discharge Disposition: Home or Self Care Social History Tobacco Use Types Packs/Day Years [...] Procedure Name Priority Date/Time Associated Diagnosis Comments XR SPINE ENTIRE 2 OR 3VW Routine 05/12/2017 9:27 AM CDT Scoliosis of thoracic spine, unspecified scoliosis type documented in this encounter Results * XR ENTIRE SPINE 2VW (05/12/2017 9:27 AM CDT) Anatomical Region Laterality Modality Radiographic Dina ging 05/12/2017 9:44 AM CDT Impressions 05/12/2017 11:02 AM CDT Thoracic levoscoliosis and thoracolumbar dextroscoliosis. This report was dictated by Morgan De Jesus M.D. (Fermentologist). I, Caroline Peralta, have personally reviewed the images and I agree with this report. Narrative 05/12/2017 11:02 AM CDT Examination: Entire spine, 2 views HISTORY: 17-year-old male with scoliosis. COMPARISON: None FINDINGS: Standing frontal and lateral radiographs of the spine are reviewed. There are 12 rib-bearing thoracic vertebral bodies and 5 nonrib-bearing lumbar vertebral bodies. No segmentation anomalies are seen. There is a upper thoracic levoscoliosis with a Jimenes angle of 23 degrees as measured from T1-T6. There is a compensatory thoracolumbar dextroscoliosis with a Jimenes angle of 17 degrees as measured from T6-L1. There is lumbar a slight lumbar levocurvature. 7 mm of pelvic tilt is present, left higher than right. No coronal or sagittal imbalance is seen. The lungs are clear. The cardiomediastinal silhouette appears normal. The bowel gas pattern is nonobstructive. Procedure Note Caroline Peralta MD - 05/12/2017 Examination: Entire spine, 2 views HISTORY: 17-year-old male with scoliosis. COMPARISON: None FINDINGS: Standing frontal and lateral radiographs of the spine are reviewed. There are 12 rib-bearing thoracic vertebral bodies and 5 nonrib-bearing lumbar vertebral bodies. No segmentation anomalies are seen. There is a upper thoracic levoscoliosis with a Jimenes angle of 23 degrees as measured from T1-T6. There is a compensatory thoracolumbar dextroscoliosis with a Jimenes angle of 17 degrees as measured from T6-L1. There is lumbar a slight lumbar levocurvature. 7 mm of pelvic tilt is present, left higher than right. No coronal or sagittal imbalance is seen. The lungs are clear. The cardiomediastinal silhouette appears normal. The bowel gas pattern is nonobstructive. IMPRESSION Thoracic levoscoliosis and thoracolumbar dextroscoliosis. This report was dictated by Morgna De Jesus M.D. (Fermentologist). I, Caroline Peralta, have personally reviewed the images and I agree with this report. Magdaleno Goodwin MD DIAGNOSTIC IMAGING O RDERABLES documented in this encounter Visit Diagnoses Diagnosis Scoliosis of thoracic spine, unspecified scoliosis type documented in this encounter Care Teams Women Specialist Relationship Specialty Start Date End Date Lulu Orr MD PCP - Pediatrics 10/29/09 Donna Pacheco MD PCP - General Pediatrics 04/09/15 documented as of this encounter
--- OUTSIDE RECORDS SUMMARY | 2024-09-27 20:40 | XMS_ITS | Encounter Summary ---
Author Organization [facility] Address [address] [place] [address] Care Team Providers Care Mortgage Closer Name Role Phone Lulu Orr MD Unavailable Reason for Visit * Reason Comments Cough productive, deep cou gh x4 days URI occcasional sneezing , stuffy/runny nose with clear exudate x4 days Encounter Details Date Type Department Care Team (Late st Contact Info) Description 03/08/2010 9:45 AM CDT Office Visit [facility] - Pediatrics [address] [place] [address] [place] [phone] Donna Pacheco MD [address] [place] [phone] Cough (Primary Dx) Social History Tobacco [...] - - Temperature 36.9 ??C (98.4 ??F) 03/08/2010 9:52 AM CD T Respiratory Rate - - Oxygen Saturation - - Inhaled Oxygen Concentration - - Weight 26.5 kg (58 lb 6.4 oz) 03/08/2010 9:52 AM CDT Height - - Body Mass Index - - documented in this encounter Progress Notes * Donna Pacheco MD - 03/08/2010 10:26 AM CDT Hector Alonzo is a 9 y.o. male who presents today for a complaint of cough. Cough started 4 daysago. Described as deep and productive. Worse in the am, then coughs all day long. No nighttime cough. No wheeze. Associated with fever? No Associated with URI sx? Yes --runny nose, congestion, sneezing Post nasal drainage? No Wheezing? No Abdominal pain? No Intervention tried: OTC meds PE: Gen-well appearing HEENT- throat without erythema or cobblestoning Resp-CTA bialterally CV nL S1S2 without murmur Abdomen-soft, nontender Impression: Cough, likely viral in nature Plan: Reassurance. Supportive care, may try honey 1tsp prn cough. Return or call if not improving after expected duration. * Alina Espinoza RN - 03/08/2010 9:54 AM CDT Pt is accompanied to office today by Mom. States pt has had occasional sneezing, stuffy/runny nose with clear exudate, deep productive cough x4 days. Hoarse voice x2 days of illness. Afeb. Has tried otc cough med with some relief. documented in this encounter Plan of Treatment Not on file documented as of this encounter Visit Diagnoses Diagnosis Cough- Primary documented in this encounter Care Teams Mortgage Closer Relationship Specialty Start Date End Date Lulu Orr MD PCP - Pediatrics 10/29/09 documented as of this encounter
--- OUTSIDE RECORDS SUMMARY | 2024-09-27 20:40 | XMS_ITS | Encounter Summary ---
Author Organization [facility] Address [address] [place] [address] Care Team Providers Care Evp Operations Name Role Phone Lulu Orr MD Unavailable Tal Cuenca MD Primary Care Provider [phone] Reason for Visit * Reason Comments Cold Symptoms sneezing, stuffy nos e x 2 days Cough productive cough x2 days with southern ute green sputum Fever low grade initial da y of illness; temps up to 99.0 Encounter Details Date Type Department Care Team (Late st Contact Info) Description 08/25/2014 11:00 AM SKIP LOCATOR Office Visit [facility] Medical [facility] - Pediatrics [address] [place] [phone] Donna Pacheco MD [address] [place] [phone] Viral illness (Primary Dx) Social History Tobacco Use Types [...] - - Temperature 37 ??C (98.6 ??F) 08/25/2014 11:20 AM SKIP LOCATOR Respiratory Rate - - Oxygen Saturation - - Inhaled Oxygen Concentration - - Weight 45 kg (99 lb 3.2 oz) 08/25/2014 11:20 AM SKIP LOCATOR Height - - Body Mass Index - - documented in this encounter Progress Notes * Donna Pacheco MD - 08/25/2014 3:32 PM CST Hector Alonzo is a 14 y.o. year old male here for concern of fever, URI symptoms and malaise. Symptoms started 2 days ago. Fever: Tmax 99.9 Runny nose: Yes Nasal congestion: Yes Cough: Yes, yes and dry Sore throat: Yes Headache: Yes Body aches: Yes Medications for symptoms: none Hx of asthma/inhaler use: No PE: Vitals: 08/25/14 1120 Temp: 98.6 ??F Weight: 44.997 kg (99 lb 3.2 oz) Gen-appears tired HEENT: TM's pearly bilateral Throat- pharynx injected, tonsils red w/o exudates Nose: with clear rhinorrhea Neck: small posterior LAD Resp: Lungs are clear to auscultation CV: nL S1S2 without Murmur Rapid flu: N/A Impression: Viral illness --most likely flu, although no fever Plan: Reassurance Supportive care discussed as well as expected course and duration. Tamiflu given: No Call if shortness of breath, fever longer than 5 days, any concerns LOCATOR * Alina Espinoza RN - 08/25/2014 11:21 AM CST Hector Alonzo is a 14 y.o. male accompanied to office today by Father for evaluation of sneezing, stuffy nose, productive cough with southern ute green sputum, frontal headaches x2 days. Temps up to 99.0 the initial day of illness. Occasional sore throat. No fever overhead line worker given today. LOCATOR documented in this encounter Plan of Treatment Not on file documented as of this encounter Visit Diagnoses Diagnosis Viral illness- Primary Unspecified viral infection, in conditions classified elsewhere and of unspecified site documented in this encounter Care Teams Evp Operations Relationship Specialty Start Date End Date Lulu Orr MD PCP - Pediatrics 10/29/09 Tal Cuenca MD PCP - General Pediatrics 04/03/14 04/08/15 documented as of this encounter
--- OUTSIDE RECORDS SUMMARY | 2024-09-27 20:40 | XMS_ITS | Encounter Summary ---
Author Organization [facility] Address [address] [facility] [place] [address] Care Team Providers Care Inserting Machine Operator Name Role Phone Lulu Orr MD Unavailable Donna Pacheco MD Primary Care Provider [phone] Reason for Referral * Evaluate & Treat - Closed Specialty Diagnoses / Procedures Referred By Joie varner Referred To Contact Orthopedic Surgery / Orthopedics Diagnoses Scoliosis of thoracic spine, unspecified scoliosis type Andreas Queen DO [address] [phone] Magdaleno Sauer MD [address] [facility] [place] [address] Referral ID Status Reason Start Date Expiration Date V isits Requested Visits Authorized [id number] Closed Specialty Services Required 03/30/2017 09/26/2017 1 1 Scheduling Instructions If this order was placed as Emergent, this office will personally call this provider to schedule your appointment. If this order was placed as Urgent, an [facility] Dressing Room Attendant will contact you within the next 4 hours to schedule your appointment. If your order was placed as Routine, an [facility] Dressing Room Attendant will contact you by phone within the next 24 hours to schedule your appointment. Please let them know if you would like to schedule your appointment at a different [facility] location. Reason for Visit * Reason Comments Referral referred by Dr Pacheco PCP for upper and lower back pain. Pain has been present for a couple years (2-3yrs), becoming more frequent. Has had X-ray done this summer. * Evaluate & Treat - Closed Specialty Diagnoses / Procedures Referred By Joie t Referred To Contact Orthopedic Surgery / Orthopedics Diagnoses Scoliosis of thoracic spine, unspecified scoliosis type Andreas Queen DO [address] [place] [address] Magdaleno Sauer MD [address] [facility] [place] [address] Referral ID Status Reason Start Date Expiration Date V isits Requested Visits Authorized [id number] Closed Specialty Services Required 03/30/2017 09/26/2017 1 1 Encounter Details Date Type Department Care Team (Late st Contact Info) Description 05/12/2017 8:51 AM CDT - 05/12/2017 9:22 AM CDT Hospital Encounter [facility] Pediatrics - Orthopedics [address] [facility] [address] Magdaleno Sauer MD [address] [facility] [place] [address] Discharge Disposition: Home or Self Care Social [...] Pressure - - Pulse - - Temperature - - Respiratory Rate - - Oxygen Saturation - - Inhaled Oxygen Concentration - - Weight 57.8 kg (127 lb 6.8 oz) 05/12/2017 9:07 A M CDT Height 175.3 cm (5' 9 ) 05/12/2017 9:07 AM CDT Body Mass Index 18.82 05/12/2017 9:07 AM CDT Body Mass Index Percentile 23.07% 05/12/2017 9:0 7 AM CDT Growth Chart: [facility] (Boys, 2-2 0 Years) documented in this encounter Discharge Instructions * Patient Instructions* Donna Etienne RN - 05/12/2017 10:02 AM CDT ICD-10-CM 1. Scoliosis of thoracic spine, unspecified scoliosis type M41.9 AMB REFERRAL TO PEDIATRIC ORTHOPEDICS AMB REFERRAL TO PEDIATRIC ORTHOPEDICS XR ENTIRE SPINE 2VW Return appointment: 1 Year for a Routine (15 min) visit Medications prescribed: None Activity Restrictions: No activity restrictions Hamstring stretching School excuse: Patient had appointment on 05/12/2017 If you have any further questions please contact Laurel Etienne RN [phone]. documented in this encounter Progress Notes * Vito Ricketts MD - 05/12/2017 9:22 AM CDT PEDIATRIC ORTHOPAEDIC SURGERY Office Visit NAME: Hector Alonzo DATE OF SERVICE: 05/12/2017 DATE: 2000 PCP: Donna Pacheco MD Chief Complaint Patient presents with ??? Referral referred by Dr Pacheco PCP for upper and lower back pain. Pain has been present for a couple years (2-3yrs), becoming more frequent. Has had X-ray done this summer. SUBJECTIVE: Hector presents for a New Patient evaluation. Hector Alonzo is a 17 y.o. male whopresents for evaluation and treatment of lower back pain after asymmetry in the back was detected by PCP a few months ago. There is a family history of scoliosis in his father. He obtained radiographs at an outside facility and again today. Per the patient and his father, after detection of possible scoliosis, he began to notice back discomfort that seemed to persist. He pinpoints the beginning of this pain to a fall off of a couch several years ago. The discomfort does not limit his physical activity in any meaningful way. He is not overly active and prefers to play video games, so the extent of his physical limitations is unclear at this time. He denies symptoms of weakness or numbness. Otherwise healthy. PAST MEDICAL HISTORY: has a past medical history of Acute pharyngitis (11/24/07); Acute sinusitis, unspecified (09/23/07); Influenza with other respiratory manifestations (11/25/07); Routine infant or child health check; Streptococcal sore throat (04/22/09); and Unspecified otitis media (11/12/08). PAST SURGICAL HISTORY: has no past surgical history on file. MEDICATIONS: currently has no medications in their medication list. ALLERGIES: Review of patient's allergies indicates no known allergies. SOCIAL HISTORY: Hector lives with his parents. Hector does attend school, high school. Hector is involved in no extracurricular activities. FAMILY HISTORY: Family history is negative for genetic conditions affecting children. REVIEW OF SYSTEMS: History obtained from the patient and his father. PHYSICAL EXAMINATION:Ht 5' 9 (175.3 cm) Wt 127 lb 6.8 oz (27207 g) BMI 18.82 kg/m2 General appearance: He has good head control. Orientation: alert, cooperative, no distress. Mood&affect: both mood and affect are normal Extremities: Bilateral upper extremity Skin - No rashes or abnormal dyspigmentation Inspection - No swelling, erythema, deformity, atrophy or hypertrophy noted Tenderness - absent Joint effusion - absent Range of motion - full range of motion Stability - stable Bilateral lower extremity Skin - No rashes or abnormal dyspigmentation Inspection - No swelling, erythema, deformity, atrophy or hypertrophy noted Tenderness - absent Joint effusion - absent Range of motion - limited ROM through hips with extension Stability - stable Back: Inspection: no skin abnormalities Head position: centered Shoulder Position: bilateral normal Chest wall abnormality: normal Waist asymmetry: No Body Position: balanced Thoracic spine: flexible, full range of motion without pain Lumbar spine: flexible, There are no abnormalities of the lumbosacral spine SLR - negative right leg, negative left leg De Jesus forward bending: no asymmetry Muscle tone and ROM exam: muscle tone normal without spasm Leg Length discrepancy: none Lower Extremity Neuro Exam right left Strength: normal 5/5 strength in all tested muscle groups normal 5/5 strength in all tested muscle groups Sensation: normal normal Reflexes: 2+ and symmetric 2+ and symmetric Gait: Normal Other: tight hamstrings with SLR RADIOLOGY (taken and reviewed): standing PA and lateral views - Jimenes angles: T1- T5 24 degrees. No lumbar curvature noted. ASSESSMENT: 17 y.o. 1 m.o. male with : 1. Scoliosis of thoracic spine, unspecified scoliosis type PLAN: 1. The diagnosis and findings were explained to the patient, questions answered. 2. Treatment recommended: hamstring exercises, Physical therapy for hamstring tightness 3. Medications: OTC medications - Tylenol or Motrin. Usage discussed 4. Activity Restrictions: May participate without restrictions. Avoid immobilization. 5. Follow up: in 12 months. X-Rays - Yes standing scoliosis * Magdaleno Sauer MD - 05/12/2017 9:22 AM CDT [address] [address] [phone] PEDIATRIC ORTHOPAEDIC CONSULTATION NAME: HECTOR ALONZO : 2000 Unit #: [id number] CSN #: [id number] Date of Consultation: Hector seen today in conjunction to orthopedic bottle house cleaners supervisor. I personally performed a history and examination on this patient. I personally presented the care plan to Hector and his parents. Hector is here for evaluation of lower back discomfort, which occurred after a fall off a couch and some upper thoracic scoliosis. He has no activity restrictions from his spine. PHYSICAL EXAMINATION: Shows that he has minimal asymmetry of his lumbar spine with Angel's forward bend test. No clonus. Negative straight leg raise. Standing scoliosis radiograph show a T1 through T5 curvature of 24 degrees. He has straight lumbar spine with no obvious deformity. IMPRESSION: An upper thoracic scoliosis in a skeletally immature male, which is intermittent low back pain after a fall. Back pain in a child who also has significant hamstring tightness. Popliteal angles being 60 degrees bilaterally. PLAN: The patient will continue to exercise on his own for his hamstring tightness. I have offered physical therapy. In addition, we will proceed with observation for scoliosis and follow up with them witha repeat standing PA scoliosis radiograph in 1 year. Dictated By: MAGDALENO SAUER MD /Ileana JOB ID: [id number] cc: Andreas Queen DO PEDIATRIC ORTHOPAEDIC CONSULTATION * Yoselin Virk, ERNESTO - 05/12/2017 9:10 AM CDT Pt here for upper and lower back pain that has been present for 2-3 years, becoming more frequent. Does not take any pain medicine, pops back for pain relief. No leg pain. First of three siblings (brothers). 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 documented in this encounter Plan of Treatment Pending Results Name Type Priority Associated Diagnoses Date /Time AMB REFERRAL TO PEDIATRIC ORTHOPEDICS Outpatient Referral Routine Scoliosis of thoracic spine, unspecified scoliosis type 05/12/2017 9:04 AM CDT Scheduled Referrals Name Type Priority Associated Diagnoses Order Schedule AMB REFERRAL TO PEDIATRIC ORTHOPEDICS Outpatient Referral Routine Scoliosis of thoracic spine, unspecified scoliosis type 1 Occurrences starting 05/12/2017 until 05/12/2017 documented as of this encounter Goals Goal Patient Goal Type Associated Problems Recent Progress Patient-Stated? Author Use safety retraint in car Lifestyle Not on track( 018 2:17 PM CDT) No Alina Ruffin RN documented as of this encounter Results * XR ENTIRE SPINE 2VW (05/12/2017 9:27 AM CDT) Anatomical Region Laterality Modality Radiographic Dina ging 05/12/2017 9:44 AM CDT Impressions 05/12/2017 11:02 AM CDT Thoracic levoscoliosis and thoracolumbar dextroscoliosis. This report was dictated by Morgan De Jesus M.D. (Heel Edge Inker Machine). I, Caroline Peralta, have personally reviewed the [...] was dictated by Morgan De Jesus M.D. (Heel Edge Inker Machine). I, Caroline Peralta, have personally reviewed the images and I agree with this report. Magdaleno Sauer MD DIAGNOSTIC IMAGING O [facility] documented in this encounter Visit Diagnoses Diagnosis Scoliosis of thoracic spine, unspecified scoliosis type Scoliosis of thoracic spine, unspecified scoliosis type documented in this encounter Care Teams Inserting Machine Operator Relationship Specialty Start Date End Date Lulu Orr MD PCP - Pediatrics 10/29/09 Donna Pacheco MD PCP - General Pediatrics 04/09/15 documented as of this encounter
--- OUTSIDE RECORDS SUMMARY | 2024-09-27 20:40 | XMS_ITS | Encounter Summary ---
Author Organization [facility] Address [address] [place] [address] Care Team Providers Care Tape Weaver Name Role Phone Lulu Orr MD Unavailable Donna Pacheco MD Primary Care Provider [phone] Reason for Visit * Reason Comments Sore Throat sore throat, decreas ed appetite, headache x 6 days. Stuffy nrunny nose in mornings. Fever yesterday ^102.2. Encounter Details Date Type Department Care Team (Late st Contact Info) Description 02/19/2017 3:45 PM CDT Office Visit [facility] - Pediatrics [address] [place] [phone] Donna Pacheco MD [address] [place] [phone] Acute pharyngitis, unspecified etiology (Primary Dx); Fever, unspecified fever cause Social History Tobacco Use Types Packs/Day Years [...] Pressure - - Pulse - - Temperature 37.4 ??C (99.3 ??F) 02/19/2017 3:53 PM CD T Respiratory Rate - - Oxygen Saturation - - Inhaled Oxygen Concentration - - Weight 56.9 kg (125 lb 6.4 oz) 02/19/2017 3:53 P M CDT Height - - Body Mass Index - - documented in this encounter Progress Notes * Donna Pacheco MD - 02/19/2017 4:02 PM CDT Hector Alonzo. 16 y.o., male, here for evaluation of sore throat. Symptoms started 6 days ago. Fever: Yes, Tmax 102+ Runny Nose: No, Congestion: Yes -in the mornings Cough: No, Headache: Yes Abd Pain: No Rash: No Sleep: increased Appetite: fair Fluids: good Sick contacts with Strep: No Medications: none PE: Temp 99.3 ??F (Temporal Artery) Wt 56.9 kg (125 lb 6.4 oz) Alert NAD SHEENT: Skin: no observable rash Ears: Left: Normal Right: Normal Throat:injected Tonsils: red, swollen, +exudates Neck: supple, nontender left side anterior LAD Heart: normal S1, S2, no murmurs or gallops. Lungs: Clear to auscultation and Normal breath sounds bilaterally Rapid Strep: negative Impression: 1. Pharyngitis 2. Fever -- Plan: Will tx while awaiting cx as dad reports his throat cx's are frequently + , si/sx c/w strep Rx:Amox BID Throat culture sent Fever control and encourage fluids. Follow up prn. documented in this encounter Plan of Treatment Scheduled Orders Name Type Priority Associated Diagnoses Orde r Schedule CULTURE AEROBIC Microbiology Routine Acute pharyngitis, unspecified etiology Fever, unspecified fever cause Ordered: 02/19/2017 documented as of this encounter Goals Goal Patient Goal Type Associated Problems Recent Progress Patient-Stated? Author Use safety retraint in car Lifestyle Not on track( 018 2:17 PM CDT) No Alina Ruffin RN documented as of this encounter Procedures Procedure Name Priority Date/Time Associated Diagnosis Comments STREP A SCREEN - POINT OF CARE (AMB) Routine 02/19/2017 4:00 PM CDT Acute pharyngitis, unspecified etiology documented in this encounter Results * STREP A SCREEN - POINT OF CARE (AMB) (02/19/2017 4:00 PM CDT) Strep A Rapid POCT Negative Negative Strep A Internal Control Present Other ENTIRE THROAT (SURFACE REGION OF NECK) / Unknown 02/19/2017 4:00 PM CDT Donna Pacheco MD LAB - POINT OF CARE ORDERABLES documented in this encounter Visit Diagnoses Diagnosis Acute pharyngitis, unspecified etiology- Primary Fever, unspecified fever cause documented in this encounter Care Teams Tape Weaver Relationship Specialty Start Date End Date Lulu Orr MD PCP - Pediatrics 10/29/09 Donna Pacheco MD PCP - General Pediatrics 04/09/15 documented as of this encounter
--- OUTSIDE RECORDS SUMMARY | 2024-09-27 20:40 | XMS_ITS | Encounter Summary ---
Author Organization [facility] Address [address] [facility] [place] [address] Care Team Providers Care Nuclear Worker Technician Name Role Phone Lulu Orr MD Unavailable Lulu Orr MD Primary Care Provider [phone] Reason for Visit * Reason Comments URI Encounter Details Date Type Department Care Team (Late st Contact Info) Description 11/06/2011 10:55 AM CLOTH SHRINKING MACHINE OPERATOR HELPER Office Visit [facility] Medical [facility] - Pediatrics [address] [place] [phone] Lulu Orr MD [address] [place] [phone] Acute pharyngitis (Primary Dx) Social History Tobacco [...] - - Temperature 37 ??C (98.6 ??F) 11/06/2011 11:00 AM CLOTH SHRINKING MACHINE OPERATOR HELPER Respiratory Rate - - Oxygen Saturation - - Inhaled Oxygen Concentration - - Weight 31.3 kg (69 lb) 11/06/2011 11:00 AM CLOTH SHRINKING MACHINE OPERATOR HELPER Height 142.2 cm (4' 8 ) 11/06/2011 11:00 AM CLOTH SHRINKING MACHINE OPERATOR HELPER Body Mass Index 15.47 11/06/2011 11:00 AM CLOTH SHRINKING MACHINE OPERATOR HELPER Body Mass Index Percentile 20.43% 11/06/2011 11: 00 AM CLOTH SHRINKING MACHINE OPERATOR HELPER Growth Chart: CDC (Boys, 2-2 0 Years) documented in this encounter Patient Instructions * Patient Instructions* Lulu Orr MD - 11/06/2011 11:20 AM CLOTH SHRINKING MACHINE OPERATOR HELPER Hector Alonzo most likely has viral sore [...] and fever as needed every four hours. H SHRINKING MACHINE OPERATOR HELPER documented in this encounter Progress Notes * Lulu Orr MD - 11/10/2011 10:47 AM CSTQuick Note: Please call the parent and let him/her know the results show strep infection. H SHRINKING MACHINE OPERATOR HELPER * Yovana Lopez MD - 11/08/2011 2:22 PM CSTAddended by: YOVANA LOPEZ on: 11/08/2011 02:22 PM Modules accepted: Orders H SHRINKING MACHINE OPERATOR HELPER * Yovana Lopez MD - 11/08/2011 2:20 PM CSTQuick Note: Told pt's dad of + cx. Will order abx. H SHRINKING MACHINE OPERATOR HELPER * Lulu Orr MD - 11/06/2011 11:01 AM CST SUBJECTIVE: Hector Alonzo is a 11 y.o. male brought by mother with complaints of congestion, sneezing, sore throat, nasal blockage, post nasal drip, dry cough, headache and abdominal pain for 5 days Sore Throat :Yes Fever: No normal activity, mood and playfulness, normal appetite and normal fluid intake. OBJECTIVE: Temp(Src) 98.6 ??F (Temporal Artery) Wt 69 lb (31.298 kg) BMI 15.47 kg/m2 General appearance: alert, well appearing, and in [...] rhythm, normal S1 and S2, no murmurs ASSESSMENT: Pharyngitis r/o sterp PLAN: See orders for this visit as documented in the electronic medical record Symptomatic therapy suggested: push fluids, rest and return office visit prn if symptoms persist orworsen. H SHRINKING MACHINE OPERATOR HELPER documented in this encounter Plan of Treatment Not on file documented as of this encounter Procedures Procedure Name Priority Date/Time Associated Diagnosis Comments CULTURE STREP GROUP A Routine 11/06/2011 11:39 AM CLOTH SHRINKING MACHINE OPERATOR HELPER Acute pharyngitis STREP A SCREEN - POINT OF CARE (AMB) Routine 11/06/2011 11:15 AM CLOTH SHRINKING MACHINE OPERATOR HELPER Acute pharyngitis documented in this encounter Results * (ABNORMAL) CULTURE STREP GROUP A (11/06/2011 11:39 AM CLOTH SHRINKING MACHINE OPERATOR HELPER) Beta-Strep Culture, Group A Only Positive( A) [facility] ACCOUNT BILL Comment: Penicillin and ampicillin are drugs of choice for treatment of beta-hemolytic streptococcal infections. Susceptibility testing of penicillins and other beta-lactam agents approved by the FDA for treatment of beta-hemolytic streptococcal infections need not be performed routinely because nonsusceptible isolates are extremely rare in any beta-hemolytic streptococcus and have not been reported for Streptococcus pyogenes (group A). (CLSI 2011) Miscellaneous samples (specimen) ENTIRE THROAT (SURFACE REGION OF NECK) / Unknown 11/06/2011 11:39 AM CLOTH SHRINKING MACHINE OPERATOR HELPER 11/06/2011 9:31 PM CLOTH SHRINKING MACHINE OPERATOR HELPER Narrative Resulting Agency Comment [facility] [address] ??[facility] [phone] Lulu Orr MD LAB - MICROBIOLOGY O RDERABLES [facility] ACCOUNT BILL * STREP A SCREEN - POINT OF CARE (AMB) (11/06/2011 11:15 AM CLOTH SHRINKING MACHINE OPERATOR HELPER) Strep A Rapid POCT Negative Negative Strep A Internal Control NEGATIVE - POSITIVE Throat swab (specimen) ENTIRE THROAT (SURFACE REGION OF NECK) / Unknown Lulu Orr MD LAB - POINT OF CARE ORDERABLES documented in this encounter Visit Diagnoses Diagnosis Acute pharyngitis- Primary documented in this encounter Care Teams Nuclear Worker Technician Relationship Specialty Start Date End Date Lulu Orr MD PCP - Pediatrics 10/29/09 Lulu Orr MD PCP - General Pediatrics 09/30/11 04/02/14 documented as of this encounter
--- OUTSIDE RECORDS SUMMARY | 2024-09-27 20:40 | XMS_ITS | Encounter Summary ---
Author Organization [facility] Address [address] [facility] [place] [address] Care Team Providers Care Molded Grid And Parts Inspector Name Role Phone Lulu Orr MD Unavailable Tal Cuenca MD Primary Care Provider [phone] Reason for Visit * Reason Comments Ear Pain Cold Symptoms Cough Encounter Details Date Type Department Care Team (Late st Contact Info) Description 11/13/2014 11:00 AM EXECUTIVE COMMUNICATIONS MANAGER Office Visit [facility] Medical [facility] - Pediatrics [address] [place] [phone] Tal Cuenca MD [address] [id number] URI (upper respiratory infection) (Primary Dx) Social History Tobacco Use Types [...] - - Temperature 37 ??C (98.6 ??F) 11/13/2014 11: 16 AM EXECUTIVE COMMUNICATIONS MANAGER Respiratory Rate - - Oxygen Saturation - - Inhaled Oxygen Concentration - - Weight 46.5 kg (102 lb 9.6 oz) 11/13/19 15 11:16 AM EXECUTIVE COMMUNICATIONS MANAGER Height 165.4 cm (5' 5.13 ) 11/13/2014 1 1:16 AM EXECUTIVE COMMUNICATIONS MANAGER Body Mass Index 17.01 11/13/2014 11:16 AM EXECUTIVE COMMUNICATIONS MANAGER Body Mass Index Percentile 19.55% 11/13 11:16 AM EXECUTIVE COMMUNICATIONS MANAGER Growth Chart: [facility] (Boys, 2-2 0 Years) documented in this encounter Progress Notes * Tal Cuenca MD - 11/13/2014 11:20 AM CST Hector Alonzo is a 14 y.o. male accompanied to office today by Mom for evaluation of sore throat, bilat ear pain, stuffy nose, stomach ache since yesterday. Afeb. Medications: none PE: Temp(Src) 98.6 ??F (Temporal Artery) Wt 46.539 kg (102 lb 9.6 oz) BMI 17.01 kg/m2 , Alert, NAD, HEENT: Ears Right: Tympanic membrane: dull Left: Tympanic membrane: dull Nose Discharge clear Throat normal Neck normal, neck supple, trachea midline, no significant adenopathy Chest: no increased work of breathing Lungs Respiratory effort normal, clear to auscultation, normal breath sounds bilaterally Heart Normal PMI. regular rate and rhythm, normal S1, S2, no murmurs or gallops. No results found for this visit on 11/13/14. Impression: ICD-9-CM 1. URI (upper respiratory infection) 465.9 Plan: Supportive care reviewed. Discussed reasons to call back. Follow up as needed. Rest, tylenol, humidifier, etc UTIVE COMMUNICATIONS MANAGER * Alina Espinoza RN - 11/13/2014 11:17 AM CST Hector Alonzo is a 14 y.o. male accompanied to office today by Mom for evaluation of sore throat, bilat ear pain, stuffy nose, stomach ache since yesterday. Afeb. UTIVE COMMUNICATIONS MANAGER documented in this encounter Plan of Treatment Not on file documented as of this encounter Visit Diagnoses Diagnosis URI (upper respiratory infection)- Primary Acute upper respiratory infections of unspecified site documented in this encounter Care Teams Molded Grid And Parts Inspector Relationship Specialty Start Date End Date Lulu Orr MD PCP - Pediatrics 10/29/09 Tal Cuenca MD PCP - General Pediatrics 04/03/14 04/08/15 documented as of this encounter
--- OUTSIDE RECORDS SUMMARY | 2024-09-27 20:40 | XMS_ITS | Encounter Summary ---
Author Organization [facility] Address [address] [facility] [place] [address] Care Team Providers Care Upsetter Name Role Phone Lulu Orr MD Unavailable Lulu Orr MD Primary Care Provider [phone] Reason for Visit * Reason Comments Imm Inj Encounter Details Date Type Department Care Team (Latest Contact Info) Description 07/23/2012 10:15 AM CDT Clinical Support [facility] - Pediatrics [address] [place] [phone] Need for prophylactic vaccination and inoculation against influenza Social History Tobacco Use Types Packs/Day Years Used Date Smoking Tobacco: Never Assessed Sex and Gender Information Value Date Recorded Sex Assigned at Not on file Gender Identity Not on file Sexual Orientation Not on file documented as of this encounter Last Filed Vital Signs Vital Sign Reading Time Taken Comments Blood Pressure - - Pulse - - Temperature 36.5 ??C (97.7 ??F) 07/23/2012 10:19 AM C DT Respiratory Rate - - Oxygen Saturation - - Inhaled Oxygen Concentration - - Weight - - Height - - Body Mass Index - - documented in this encounter Plan of Treatment Not on file documented as of this encounter Visit Diagnoses Diagnosis Need for prophylactic vaccination and inoculation against influenza- Primary documented in this encounter Care Teams Upsetter Relationship Specialty Start Date End Date Lulu Orr MD PCP - Pediatrics 10/29/09 Lulu Orr MD PCP - General Pediatrics 09/30/11 04/02/14 documented as of this encounter
--- OUTSIDE RECORDS SUMMARY | 2024-09-27 20:40 | XMS_ITS | Encounter Summary ---
Author Organization [facility] Address [address] [facility] [place] [address] Care Team Providers Care Lobsterman Name Role Phone Lulu Orr MD Unavailable Tal Cuenca MD Primary Care Provider [phone] Reason for Visit * Reason Comments Imm Inj Encounter Details Date Type Department Care Team (Latest Contact Info) Description 04/12/2014 4:00 PM CDT Clinical Support [facility] Medical [facility] - Pediatrics [address] [place] [phone] Need for prophylactic vaccination and inoculation against viral hepatitis ; Need for prophylactic vaccination and inoculation against other viral diseases; Need for prophylactic vaccination and inoculation against other specified disease Social History Tobacco Use Types Packs/Day Years Used Date Smoking Tobacco: Never Assessed Sex and Gender Information Value Date Recorded Sex Assigned at Not on file Gender Identity Not on file Sexual Orientation Not on file documented as of this encounter Last Filed Vital Signs Vital Sign Reading Time Taken Comments Blood Pressure - - Pulse - - Temperature 37.1 ??C (98.8 ??F) 04/12/2014 4:18 PM CD T Respiratory Rate - - Oxygen Saturation - - Inhaled Oxygen Concentration - - Weight - - Height - - Body Mass Index - - documented in this encounter Plan of Treatment Not on file documented as of this encounter Visit Diagnoses Diagnosis Need for prophylactic vaccination and inoculation against viral hepatitis- Primary Need for prophylactic vaccination and inoculation against other viral diseases(V04.89) Need for prophylactic vaccination and inoculation against other viral diseases Need for prophylactic vaccination and inoculation against other specified disease documented in this encounter Care Teams Lobsterman Relationship Specialty Start Date End Date Lulu Orr MD PCP - Pediatrics 10/29/09 Tal Cuenca MD PCP - General Pediatrics 04/03/14 04/08/15 documented as of this encounter
--- OUTSIDE RECORDS SUMMARY | 2024-09-27 20:40 | XMS_ITS | Encounter Summary ---
Author Organization [facility] Address [address] [place] [address] Care Team Providers Care Ultrasound Technician Name Role Phone Lulu Orr MD Unavailable Reason for Visit * Reason Comments Fever 101.5 last evening Headache eyes, neck, back, ge neral body aches Fatigue Congestion yellow nasal D/C Encounter Details Date Type Department Care Team (Late st Contact Info) Description 12/12/2009 10:30 AM RESOURCE CONSERVATION SPECIALIST Office Visit [facility] Medical [facility] - Pediatrics [address] [place] [phone] Donna Pacheco MD [address] [place] [phone] Streptococcal Sore Throat (Primary Dx) Social History Tobacco Use Types Packs/Day Years Used Date Smoking Tobacco: Never Assessed Sex and Gender Information Value Date Recorded Sex Assigned at Not on file Gender Identity Not on file Sexual Orientation Not on file documented as of this encounter Last Filed Vital Signs Vital Sign Reading Time Taken Comments Blood Pressure - - Pulse - - Temperature 37.7 ??C (99.9 ??F) 12/12/2009 10:[address] Respiratory Rate - - Oxygen Saturation - - Inhaled Oxygen Concentration - - Weight 26.8 kg (59 lb) 12/12/2009 10:56 AM RESOURCE CONSERVATION SPECIALIST Height - - Body Mass Index - - documented in this encounter Progress Notes * Donna Pacheco MD - 12/12/2009 11:18 AM CST HPI: Hector Alonzo, 9 y.o., male, here with a complaint of fever. Fever started last night. Nytl151.5. Runny Nose: Yes, clear Congestion: Yes Cough: Yes, dry Sore Throat: Yes Headache: Yes Vomiting: No Diarrhea: No Sick Contacts: Yes, hermelinda's daughter with strep Sleep: fair Appetitie: fair Fluids: good Activity: poor Medications: none PE: Temp (Src) 99.9 ??F (Oral) Wt 26.762 kg (59 lb), Last 1 Encounter Sp02 Readings: No data found for Sp02 Alert, NAD SHEENT: Skin: no observable rash Ears: Left: Normal Right: Normal Nose: clear rhinorrhea Throat: injected, +petechiea, tonsils red 2+ Neck: supple, +tender anterior LAD Heart: Normal PMI. regular rate and rhythm, normal S1, S2, no murmurs or gallops. Lungs: Respiratory effort normal, clear to auscultation, normal breath sounds bilaterally Rapid Strep: Positive Impression: Strep Pharyngitis Plan: Amox as per orders. Tylenol or Motrin as directed to control fever. Encourage fluids. Reviewed reasons to call back including poor po intake, lethargy, rashes, or persistant fever. URCE CONSERVATION SPECIALIST documented in this encounter Plan of Treatment Not on file documented as of this encounter Procedures Procedure Name Priority Date/Time Associated Diagnosis Comments STREP A SCREEN - POINT OF CARE (AMB) Routine 12/12/2009 11:00 AM RESOURCE CONSERVATION SPECIALIST Streptococcal Sore Throat documented in this encounter Results * (ABNORMAL) STREP A SCREEN - POINT OF CARE (AMB) (12/12/2009 11:00 AM RESOURCE CONSERVATION SPECIALIST) Strep A Rapid POCT POS NEGATIVE - POSITVE Strep A Internal Control NEGATIVE - POSITIVE ENTIRE THROAT (SURFACE REGION OF NECK) / Unknown Donna Pacheco MD LAB - POINT OF CARE ORDERABLES documented in this encounter Visit Diagnoses Diagnosis Streptococcal sore throat- Primary documented in this encounter Care Teams Ultrasound Technician Relationship Specialty Start Date End Date Lulu Orr MD PCP - Pediatrics 10/29/09 documented as of this encounter
--- OUTSIDE RECORDS SUMMARY | 2024-09-27 20:40 | XMS_ITS | Encounter Summary ---
Author Organization [facility] Address [address] [place] [address] Care Team Providers Care Cattle Sprayer Name Role Phone Lulu Orr MD Unavailable Donna Pacheco MD Primary Care Provider [phone] Reason for Visit * Reason Onset Date Comments Patient Requested Call 03/12/2017 Encounter Details Date Type Department Care Team (Late st Contact Info) Description 03/12/2017 Telephone [facility] - Pediatrics [address] [place] [phone] Donna Pacheco MD [address] [place] [phone] Patient Requested Call Social History Tobacco Use Types Packs/Day Years Used Date Smoking Tobacco: Never Smokeless Tobacco: Never Alcohol Use Standard Drinks/Week Comments Not Asked 0 (1 standard drink = 0.6 oz pur e alcohol) Sex and Gender Information Value Date Recorded Sex Assigned at Not on file Gender Identity Not on file Sexual Orientation Not on file documented as of this encounter Miscellaneous Notes * Telephone Encounter - Alina Espinoza RN - 03/12/2017 11:10 AM CDT Spoke with Mom after reviewing chart. Mom informed that Dr Goodrich had ordered xray scoliosis series after 01/22/17 visit when she noted mild curvature. Recommended that Mom contact her insurance company to find out where she is allowed to take Him for xrays. Verbalized understanding and willingness to comply. * Telephone Encounter - Monie Holland - 03/12/2017 11:00 AM CDT Patient's mom(Olesya)called. She has orders for Hector. Wanting to know if it is for a x-ray and recommend location. Please call mom with recommendations . documented in this encounter Plan of Treatment Not on file documented as of this encounter Goals Goal Patient Goal Type Associated Problems Recent Progress Patient-Stated? Author Use safety retraint in car Lifestyle Not on track( 018 2:17 PM CDT) No Alina Ruffin RN documented as of this encounter Visit Diagnoses Not on filedocumented in this encounter Care Teams Cattle Sprayer Relationship Specialty Start Date End Date Lulu Orr MD PCP - Pediatrics 10/29/09 Donna Pacheco MD PCP - General Pediatrics 04/09/15 documented as of this encounter
--- OUTSIDE RECORDS SUMMARY | 2024-09-27 20:40 | XMS_ITS | Encounter Summary ---
Author Organization [facility] Address [address] [place] [address] Care Team Providers Care Cut And Cover Line Worker Name Role Phone Lulu Orr MD Unavailable Tal Cuenca MD Primary Care Provider [phone] Reason for Visit * Reason Comments Imm Inj Encounter Details Date Type Department Care Team (Latest Contact Info) Description 10/30/2014 10:10 AM IT PORTFOLIO MANAGER Clinical Support [facility] Medical [facility] - Pediatrics [address] [place] [phone] Need for prophylactic vaccination and inoculation against other viral diseases ; Need for prophylactic vaccination and inoculation against viral hepatitis Social History Tobacco Use Types Packs/Day Years Used Date Smoking Tobacco: Never Assessed Sex and Gender Information Value Date Recorded Sex Assigned at Not on file Gender Identity Not on file Sexual Orientation Not on file documented as of this encounter Last Filed Vital Signs Vital Sign Reading Time Taken Comments Blood Pressure - - Pulse - - Temperature 36.8 ??C (98.2 ??F) 10/30/2014 10:[address] Respiratory Rate - - Oxygen Saturation - - Inhaled Oxygen Concentration - - Weight - - Height 164.5 cm (5' 4.75 ) 10/30/2014 10:[address] Body Mass Index - - documented in this encounter Plan of Treatment Not on file documented as of this encounter Visit Diagnoses Diagnosis Need for prophylactic vaccination and inoculation against other viral diseases(V04.89)- Primary Need for prophylactic vaccination and inoculation against other viral diseases Need for prophylactic vaccination and inoculation against viral hepatitis documented in this encounter Care Teams Cut And Cover Line Worker Relationship Specialty Start Date End Date Lulu Orr MD PCP - Pediatrics 10/29/09 Tal Cuenca MD PCP - General Pediatrics 04/03/14 04/08/15 documented as of this encounter
--- OUTSIDE RECORDS SUMMARY | 2024-09-27 20:40 | XMS_ITS | Encounter Summary ---
Author Organization [facility] Address [address] [facility] [place] [address] Care Team Providers Care Home Staging Specialist Name Role Phone Lulu Orr MD Unavailable Donna Pacheco MD Primary Care Provider [phone] Reason for Referral * Evaluate & Treat - Closed Specialty Diagnoses / Procedures Referred By Joie varner Referred To Contact Orthopedic Surgery / Orthopedics Diagnoses Scoliosis of thoracic spine, unspecified scoliosis type Andreas Queen DO [address] [phone] Magdaleno Goodwin MD [address] [facility] [place] [address] Referral ID Status Reason Start Date Expiration Date V isits Requested Visits Authorized [id number] Closed Specialty Services Required 03/30/2017 09/26/2017 1 1 Scheduling Instructions If this order was placed as Emergent, this office will personally call this provider to schedule your appointment. If this order was placed as Urgent, an [facility] Release Coordinator will contact you within the next 4 hours to schedule your appointment. If your order was placed as Routine, an [facility] Release Coordinator will contact you by phone within the next 24 hours to schedule your appointment. Please let them know if you would like to schedule your appointment at a different [facility] location. Reason for Visit * Reason Onset Date Comments Imaging Results 03/30/2017 Encounter Details Date Type Department Care Team (Late st Contact Info) Description 03/30/2017 Telephone [facility] - Pediatrics [address] [facility] [address] [place] [phone] Andreas Queen DO [address] [phone] Imaging Results Social History Tobacco Use Types Packs/Day Years [...] encounter Miscellaneous Notes * Telephone Encounter - Andreas Queen DO - 03/30/2017 9:00 AM CDT Spoke to family about scoliosis seen on xray. He is having back pain. Will refer to ortho. documented in this encounter Plan of Treatment Pending Results Name Type Priority Associated Diagnoses Date /Time AMB REFERRAL TO PEDIATRIC ORTHOPEDICS Outpatient Referral Routine Scoliosis of thoracic spine, unspecified scoliosis type 05/12/2017 9:04 AM CDT Scheduled Referrals Name Type Priority Associated Diagnoses Order Schedule AMB REFERRAL TO PEDIATRIC ORTHOPEDICS Outpatient Referral Routine Scoliosis of thoracic spine, unspecified scoliosis type 1 Occurrences starting 03/30/2017 until 03/30/2018 documented as of this encounter Goals Goal Patient Goal Type Associated Problems Recent Progress Patient-Stated? Author Use safety retraint in car Lifestyle Not on track( 018 2:17 PM CDT) No Alina Ruffin RN documented as of this encounter Visit Diagnoses Diagnosis Scoliosis of thoracic spine, unspecified scoliosis type- Primary documented in this encounter Care Teams Home Staging Specialist Relationship Specialty Start Date End Date Lulu Orr MD PCP - Pediatrics 10/29/09 Donna Pacheco MD PCP - General Pediatrics 04/09/15 documented as of this encounter
--- OUTSIDE RECORDS SUMMARY | 2024-09-27 20:40 | XMS_ITS | Encounter Summary ---
Author Organization [facility] Address [address] [place] [address] Care Team Providers Care Bending Roll Hand Name Role Phone Lulu Orr MD Unavailable Lulu Orr MD Primary Care Provider [phone] Reason for Visit * Reason Onset Date Comments Opened In Error 08/10/2012 Encounter Details Date Type Department Care Team (Late st Contact Info) Description 08/10/2012 Telephone [facility] - Pediatrics [address] [place] [phone] Lulu Orr MD [address] [place] [address] Opened In Error Social History Tobacco Use Types Packs/Day Years Used Date Smoking Tobacco: Never Assessed Sex and Gender Information Value Date Recorded Sex Assigned at Not on file Gender Identity Not on file Sexual Orientation Not on file documented as of this encounter Plan of Treatment Not on file documented as of this encounter Visit Diagnoses Not on filedocumented in this encounter Care Teams Bending Roll Hand Relationship Specialty Start Date End Date Lulu Orr MD PCP - Pediatrics 10/29/09 Lulu Orr MD PCP - General Pediatrics 09/30/11 04/02/14 documented as of this encounter
--- OUTSIDE RECORDS SUMMARY | 2024-09-27 20:40 | XMS_ITS | Encounter Summary ---
Author Organization [facility] Address [address] [facility] [place] [address] Care Team Providers Care Die Storage Worker Name Role Phone Lulu Orr MD Unavailable Reason for Visit * Reason Comments Strep Throat Encounter Details Date Type Department Care Team (Latest Contact Info) Description 01/10/2010 11:10 AM CDT Office Visit [facility] Medical [facility] - Pediatrics [address] [place] [phone] Lulu Orr MD [address] [place] [address] Streptococcal Sore Throat (Primary Dx) Social History [...] - - Temperature 37.4 ??C (99.3 ??F) 01/10/2010 11:17 AM C DT Respiratory Rate - - Oxygen Saturation - - Inhaled Oxygen Concentration - - Weight 26 kg (57 lb 6.4 oz) 01/10/2010 11:17 AM CDT Height - - Body Mass Index - - documented in this encounter Progress Notes * Lulu Orr MD - 01/10/2010 11:19 AM CDT SUBJECTIVE: eHctor Alonzo is a 9 y.o.brought by father who complains of sore throat for 1 day(s). Fever: Yes,99.3 today Headache:Yes Stomach ache:No URI symptoms: Yes OBJECTIVE: Temp (Src) 99.3 ??F (Oral) Wt 26.036 kg (57 lb 6.4 oz) General appearance: alert, well appearing, and in no distress. Ears: bilateral TM's and external ear canals normal Nose: normal and patent, no erythema, discharge or polyps Oropharynx: erythematous, No exudate noted and tonsils hypertrophied without exudate Neck: bilateral symmetric anterior adenopathy Lungs: clear to auscultation, no wheezes, rales or rhonchi, symmetric air entry Heart - regular rate and rhythm, normal S1 and S2, no murmurs Abdomen:NT, ND, normal BS's, no HSM ASSESSMENT: Pharyngitis Strep throat PLAN: See orders for this visit as documented in the electronic medical record Symptomatic treatment discussed. documented in this encounter Plan of Treatment Not on file documented as of this encounter Procedures Procedure Name Priority Date/Time Associated Diagnosis Comments STREP A SCREEN - POINT OF CARE (AMB) Routine 01/10/2010 11:24 AM CDT Streptococcal Sore Throat documented in this encounter Results * (ABNORMAL) STREP A SCREEN - POINT OF CARE (AMB) (01/10/2010 11:24 AM CDT) Strep A Rapid POCT positive NEGATIVE - POSITVE Strep A Internal Control NEGATIVE - POSITIVE ENTIRE THROAT (SURFACE REGION OF NECK) / Unknown Lulu Orr MD LAB - POINT OF CARE ORDERABLES documented in this encounter Visit Diagnoses Diagnosis Streptococcal sore throat- Primary documented in this encounter Care Teams Die Storage Worker Relationship Specialty Start Date End Date Lulu Orr MD PCP - Pediatrics 10/29/09 documented as of this encounter
--- OUTSIDE RECORDS SUMMARY | 2024-09-27 20:40 | XMS_ITS | Encounter Summary ---
Author Organization [facility] Address [address] [place] [address] Care Team Providers Care Cemetery Manager Name Role Phone Kamran Ayala MD Unavailable Kamran Ayala MD Primary Care Provider [phone] Reason for Visit * Reason Comments Sore Throat 1 week, 100 last pm, took motrin last pm Fever Fatigue Encounter Details Date Type Department Care Team (Late st Contact Info) Description 02/01/2013 10:45 AM CDT Office Visit [facility] - Pediatrics [address] [place] [phone] Kamran Ayala MD [address] [place] [address] Acute pharyngitis (Primary Dx); Streptococcal pharyngitis Social History Tobacco Use Types Packs/Day Years Used Date Smoking Tobacco: Never Assessed Sex and Gender Information Value Date Recorded Sex Assigned at Not on file Gender Identity Not on file Sexual Orientation Not on file documented as of this encounter Last Filed Vital Signs Vital Sign Reading Time Taken Comments Blood Pressure - - Pulse - - Temperature 36.7 ??C (98 ??F) 02/01/2013 10:23 AM CDT Respiratory Rate - - Oxygen Saturation - - Inhaled Oxygen Concentration - - Weight 36.9 kg (81 lb 6 oz) 02/01/2013 10:23 AM CDT Height - - Body Mass Index - - documented in this encounter Patient Instructions * Patient Instructions* Kamran Ayala MD - 02/01/2013 10:56 AM CDT Hector Alonzo most likely has [...] documented in this encounter Progress Notes * Kamran Ayala MD - 02/04/2013 9:15 AM CDTQuick Note: Strep positive, called in oral antibiotic for him, spoke to dad. * Kamran Ayala MD - 02/01/2013 10:43 AM CDT SUBJECTIVE: Hector Alonzo is a 12 y.o.brought by father who complains of sore throat for 7 day(s). Fever: Yes, up to 100, last dose of motrin last pm Headache:No Stomach ache:No URI symptoms: No OBJECTIVE: Temp(Src) 98 ??F (Temporal Artery) Wt 81 lb 6 oz (36.911 kg) General appearance: alert, well appearing, and in no distress. Ears: bilateral TM's and external ear canals normal Nose: normal and patent, no erythema, discharge or polyps Oropharynx: erythematous and mucous membranes moist, Neck: supple, no significant adenopathy Lungs: clear to auscultation, no wheezes, rales or rhonchi, symmetric air entry Heart - regular rate and rhythm, normal S1 and S2, no murmurs Abdomen:NT, ND, normal BS's, no HSM ASSESSMENT: Pharyngitis possible Strep throat PLAN: See orders for this visit as documented in the electronic medical record Strep culture sent Symptomatic treatment discussed. documented in this encounter Miscellaneous Notes * Addendum Note - Kamran Ayala MD - 02/04/2013 9:15 AM CDTAddended by: KAMRAN AYALA on: 02/04/2013 09:15 AM Modules accepted: Orders documented in this encounter Plan of Treatment Not on file documented as of this encounter Procedures Procedure Name Priority Date/Time Associated Diagnosis Comments CULTURE STREP GROUP A Routine 02/01/2013 11:06 AM CDT Acute pharyngitis STREP A SCREEN - POINT OF CARE (AMB) Routine 02/01/2013 10:56 AM CDT Acute pharyngitis documented in this encounter Results * (ABNORMAL) CULTURE STREP GROUP A (02/01/2013 11:06 AM CDT) Beta-Strep Culture, Group A Only Positive( A) [...] THROAT (SURFACE REGION OF NECK) / Unknown 02/01/2013 11:06 AM CDT 02/01/2013 9:49 PM CDT Narrative Resulting Agency Comment [facility] [place] [id number] [facility] ??[facility] [id number] Kamran Ayala MD LAB - MICROBIOLOGY O RDERABLES [facility] ACCOUNT BILL * STREP A SCREEN - POINT OF CARE (AMB) (02/01/2013 10:56 AM CDT) Strep A Rapid POCT Negative Negative Strep A Internal Control NEGATIVE - POSITIVE Throat swab (specimen) ENTIRE THROAT (SURFACE REGION OF NECK) / Unknown Kamran Ayala MD LAB - POINT OF CARE ORDERABLES documented in this encounter Visit Diagnoses Diagnosis Acute pharyngitis- Primary Streptococcal pharyngitis Streptococcal sore throat documented in this encounter Care Teams Cemetery Manager Relationship Specialty Start Date End Date Kamran Ayala MD PCP - Pediatrics 10/29/09 Kamran Ayala MD PCP - General Pediatrics 09/30/11 04/02/14 documented as of this encounter
--- OUTSIDE RECORDS SUMMARY | 2024-09-27 20:40 | XMS_ITS | Clinical Summary ---
Author Organization [facility] Address [address] [place] [address] Phone Care Team Providers Care Oyster Cultivator Name Role Phone Unavailable Primary Care Provider Unavailabl e Allergies No known active allergies Medications No known medications Social History Tobacco Use Types Packs/Day Years Used Date Smoking Tobacco: Some Days Smokeless Tobacco: Never Alcohol Use Standard Drinks/Week Comments Yes 0 (1 standard drink = 0.6 oz pur e alcohol) Sex and Gender Information Value Date Recorded Sex Assigned at Not on file Gender Identity Not on file Sexual Orientation Not on file Last Filed Vital Signs Vital Sign Reading Time Taken Comments Blood Pressure 134/84 08/10/2020 8:41 AM TRAFFIC SERGEANT Pulse 85 08/10/2020 8:41 AM TRAFFIC SERGEANT Temperature 36.9 ??C (98.4 ??F) 08/10/2020 8:41 AM CS T Respiratory Rate 19 08/10/2020 8:41 AM TRAFFIC SERGEANT Oxygen Saturation 97% 08/10/2020 8:41 AM TRAFFIC SERGEANT Inhaled Oxygen Concentration - - Weight 68 kg (150 lb) 08/10/2020 8:41 AM TRAFFIC SERGEANT Height 177.8 cm (5' 10 ) 08/10/2020 8:41 AM TRAFFIC SERGEANT Body Mass Index 21.52 08/10/2020 8:41 AM TRAFFIC SERGEANT Plan of Treatment Health Maintenance Due Date Last Done Comments PNEUMOCOCCAL VACCINE 0-64 YE ARS (1 of 2 - PCV) 2007 DTAP/TDAP/TD VACCINES (7 - T d or Tdap) 05/06/2022 05/06/2012, 02/19/2006, 07/05/2002, Additional history exists INFLUENZA VACCINE (#1) 2024 7, 08/13/2016, 10/01/2011 HEPATITIS B VACCINES Completed 2001, 2001, 2001 HPV VACCINES Completed 10/30/2014, 06/04, 04/12/2014
--- OUTSIDE RECORDS SUMMARY | 2024-09-27 20:40 | XMS_ITS | Patient Health Summary ---
Author Organization [facility] Address [address] [facility] [place] [address] Care Team Providers Care Hand Etcher Helper Name Role Phone Lulu Orr MD Unavailable Donna Pacheco MD Primary Care Provider [phone] Note from [facility],non-owned Affiliates and Associated Physician Practices is amultiple site organization consisting of ambulatory clinics and hospital sitesin [place], [place], [place] and [place]. This disclosure is being madepursuant to the Care Everywhere program and may not contain all information available regarding this patient. Last updated 18.[facility] Allergies No known active allergies Medications Be aware that medications may not be up to date on this document. Always verify current medications with the patient. 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 (AFLURIA, FLUZONE TRIVALENT; 6MO+) (IIV3)(Given 10/01/2011) * DTaP VACCINE IM (6wk-6yrs)(Given 02/19/2006, 07/05/2002, 2001, 2001, 2001) * HEP A PEDS 2 DOSE(Given 10/30/2014, 04/12/2014) * HEP B VACCINE, PED/ADOL(Given 2001, 2001, 2001) * HIB BOOSTER(Given 07/05/2002, 2001, 2001, 2001) * Human Papilloma Virus Quadrivalent Vaccine(Given 10/30/2014, 06/18/2014, 04/12/2014) * INFLUENZA(Given 07/28/2008, 08/15/2007, 09/30/2006) * INFLUENZA A O1I1-25 VACCINE(Given 10/02/2009, 08/22/2009) * INFLUENZA VACCINE, QUADR. (AFLURIA, FLUZONE QUADRIVALENT; 6MO+) (IIV4)(Given 08/13/2016) * INFLUENZA VACCINE, QUADR. (FLUZONE; FLULAVAL; FLUARIX; AFLURIA QUADRIVALENT; 6MO+), 0.5 ML (IIV4)(Given 08/01/2017) * Influenza Nasal(Given 07/23/2012, 08/05/2010) * MENINGOCOCCAL CONJUGATE (MCV4P)(Given 02/24/2018, 04/12/2014) * MMR(Given 02/19/2006, 07/05/2002) * PNEUMOCOCCAL CONJ, PEDS(Given 03/26/2003, 04/12/2002, 01/09/2002, 2001) * POLIO IPV(Given 02/19/2006, 04/12/2002, 2001, 2001) * PPD(Given 02/19/2006, 03/26/2003) * TDAP (7yrs+)(Given 05/06/2012) * VARICELLA(Given 07/05/2002) Social History Tobacco Use Types Packs/Day Years [...] - Oxygen Saturation 100% 10/15/2017 3:50 PM FILTER SCREEN CLEANER Inhaled Oxygen Concentration - - Weight 59.1 kg (130 lb 6.4 oz) 02/24/2018 2:16 P M CDT Height 175.9 cm (5' 9.25 ) 02/24/2018 2:16 PM CD T Body Mass Index 19.12 02/24/2018 2:16 PM CDT Procedures * LIPID PROFILE+GLUCOSE - POINT OF CARE (AMB)(Performed 02/24/2018) Performed for Screening cholesterol level, Encounter for routine child health examination with abnormal findings * XR SPINE ENTIRE 2 OR 3VW(Performed 05/12/2017) Performed for Scoliosis of thoracic spine, unspecified scoliosis type * CULTURE RESPIRATORY UPPER(Performed 02/19/2017) * STREP A SCREEN - POINT OF CARE (AMB)(Performed 02/19/2017) Performed for Acute pharyngitis, unspecified etiology * STREP A SCREEN - POINT OF CARE (AMB)(Performed 03/23/2014) Performed for Strep throat * STREP A SCREEN - POINT OF CARE (AMB)(Performed 09/11/2013) Performed for Acute pharyngitis * CULTURE STREP GROUP A(Performed 09/11/2013) Performed for Acute pharyngitis * CULTURE STREP GROUP A(Performed 06/13/2013) Performed for Acute pharyngitis * STREP A SCREEN - POINT OF CARE (AMB)(Performed 06/13/2013) Performed for Acute pharyngitis * CULTURE STREP GROUP A(Performed 03/04/2013) Performed for Acute pharyngitis, Tinea cruris * STREP A SCREEN - POINT OF CARE (AMB)(Performed 03/04/2013) Performed for Acute pharyngitis, Tinea cruris * CULTURE STREP GROUP A(Performed 02/01/2013) Performed for Acute pharyngitis * STREP A SCREEN - POINT OF CARE (AMB)(Performed 02/01/2013) Performed for Acute pharyngitis * STREP A SCREEN - POINT OF CARE (AMB)(Performed 08/09/2012) * CULTURE THROAT(Performed 06/15/2012) Performed for Sore throat * STREP A SCREEN - POINT OF CARE (AMB)(Performed 06/15/2012) Performed for Sore throat * CULTURE STREP GROUP A(Performed 04/01/2012) Performed for Acute pharyngitis * STREP A SCREEN - POINT OF CARE (AMB)(Performed 04/01/2012) Performed for Acute pharyngitis * CULTURE STREP GROUP A(Performed 11/06/2011) Performed for Acute pharyngitis * STREP A SCREEN - POINT OF CARE (AMB)(Performed 11/06/2011) Performed for Acute pharyngitis * STREP A SCREEN - POINT OF CARE (AMB)(Performed 01/10/2010) Performed for Streptococcal Sore Throat * STREP A SCREEN - POINT OF CARE (AMB)(Performed 12/25/2009) Performed for Streptococcal Sore Throat * STREP A SCREEN - POINT OF CARE (AMB)(Performed 12/12/2009) Performed for Streptococcal Sore Throat Results * LIPID PROFILE+GLUCOSE - POINT OF CARE (AMB) (02/24/2018) QC Verified Yes Yes Cholesterol POCT 143 200 mg/dl HDL POCT 35 mg/dL Triglycerides POCT 99 130 mg/dL LDL 88 130 mg/dl Non HDL Cholesterol POCT 108 145 mg/dL Total Cholesterol/HDL Ratio POCT 4.1 6.0 Glucose 125 70 - 126 mg/dL Blood BLOOD SPECIMEN / Unknown 02/24/2018 Donna Pacheco MD LAB - POINT OF CARE ORDERABLES * XR ENTIRE SPINE 2VW (05/12/2017 9:27 AM CDT) Anatomical Region Laterality Modality Radiographic Dina ging 05/12/2017 9:44 AM CDT Impressions 05/12/2017 11:02 AM CDT Thoracic levoscoliosis and thoracolumbar dextroscoliosis. This report was dictated by Morgan De Jesus M.D. ([facility]). I, Caroline Peralta, have personally reviewed the [...] was dictated by Morgan De Jesus M.D. ([facility]). I, Caroline Peralta, have personally reviewed the images and I agree with this report. Magdaleno Goodwin MD DIAGNOSTIC IMAGING O RDERABLES * CULTURE RESPIRATORY UPPER (02/19/2017 4:13 PM CDT) [facility] Upper Respiratory Culture Final report [facility] ACCOUNT BILL Result 1 [facility] ACCOUNT BILL Comment:Routine respiratory lexii 02/19/2017 4:13 PM CDT 02/19/2017 Narrative Resulting Agency Comment [facility] [address] [facility] ??[facility] [id number] Donna Pacheco MD LAB - MICROBIOLOGY O RDERABLES [facility] ACCOUNT BILL [address] [place] [address] * STREP A SCREEN - POINT OF CARE (AMB) (02/19/2017 4:00 PM CDT) Only the most recent of13 resultswithin the time period is included. Strep A Rapid POCT Negative Negative Strep A Internal Control Present Other ENTIRE THROAT (SURFACE REGION OF NECK) / Unknown 02/19/2017 4:00 PM CDT Donna Pacheco MD LAB - POINT OF CARE ORDERABLES * CULTURE STREP GROUP A (09/11/2013 1:58 PM FILTER SCREEN CLEANER) Only the most recent of6 resultswithin the time period is included. Beta-Strep Culture, Group A Only Negative [facility] ACCOUNT BILL Miscellaneous samples (specimen) ENTIRE THROAT (SURFACE REGION OF NECK) / Unknown 09/11/2013 1:58 PM FILTER SCREEN CLEANER 09/11/2013 9:40 PM FILTER SCREEN CLEANER Narrative Resulting Agency Comment [facility] [employer] ??[facility] [id number] Lulu Orr MD LAB - MICROBIOLOGY O RDERADIOGO Performing Organization Address City/[facility]/ZIP Co de Phone Number [facility] ACCOUNT BILL * CULTURE THROAT (06/15/2012 12:30 PM CDT) Upper Respiratory Culture Final report [facility] ACCOUNT BILL Result 1 [facility] ACCOUNT BILL Comment:Routine respiratory lexii Miscellaneous samples (specimen) ENTIRE THROAT (SURFACE REGION OF NECK) / Unknown 06/15/2012 12:30 PM CDT 06/15/2012 9:42 PM CDT Narrative Resulting Agency Comment [facility] [address] [facility] ??[facility] [id number] Donna Pacheco MD LAB - MICROBIOLOGY O RDAMINA [facility] ACCOUNT BILL Care Teams Hand Etcher Helper Relationship Specialty Start Date End Date Lulu Orr MD PCP - Pediatrics 10/29/09 Donna Pacheco MD PCP - General Pediatrics 04/09/15
--- OUTSIDE RECORDS SUMMARY | 2024-09-27 20:40 | XMS_ITS | Encounter Summary ---
Author Organization [facility] Address [address] [place] [address] Care Team Providers Care Business Services Intern Name Role Phone Lulu Orr MD Unavailable Donna Pacheco MD Primary Care Provider [phone] Reason for Visit * Reason Comments Imm Inj Encounter Details Date Type Department Care Team (Latest Contact Info) Description 08/13/2016 2:05 PM DIRECTOR COMMUNITY HEALTH NURSING Clinical Support [facility] - Pediatrics [address] [place] [phone] Need for prophylactic vaccination and inoculation [...] Pressure - - Pulse - - Temperature 37.2 ??C (99 ??F) 08/13/2016 1:32 PM DIRECTOR COMMUNITY HEALTH NURSING Respiratory Rate - - Oxygen Saturation - [...] Primary documented in this encounter Care Teams Business Services Intern Relationship Specialty Start Date End Date Lulu Orr MD PCP - Pediatrics 10/29/09 Donna Pacheco MD PCP - General Pediatrics 04/09/15 documented as of this encounter
--- OUTSIDE RECORDS SUMMARY | 2024-09-27 20:40 | XMS_ITS | Encounter Summary ---
Author Organization [facility] Address [address] [facility] [place] [address] Care Team Providers Care Sales Specialist Name Role Phone Lulu Orr MD Unavailable Donna Pacheco MD Primary Care Provider [phone] Reason for Visit * Reason Comments Imm Inj Encounter Details Date Type Department Care Team (Late st Contact Info) Description 07/29/2017 Telephone [facility] - Pediatrics [address] [place] [phone] Donna Pacheco MD [address] [place] [phone] Imm Inj Social History Tobacco Use Types Packs/Day Years [...] encounter Miscellaneous Notes * Telephone Encounter - Monie Holland - 07/29/2017 10:21 AM CDT The patient's mom called. Needing to schedule a flu shot documented in this encounter Plan of Treatment Not on file documented as of this encounter Goals Goal Patient Goal Type Associated Problems Recent Progress Patient-Stated? Author Use safety retraint in car Lifestyle Not on track( 018 2:17 PM CDT) No Alina Ruffin RN documented as of this encounter Visit Diagnoses Not on filedocumented in this encounter Care Teams Sales Specialist Relationship Specialty Start Date End Date Lulu Orr MD PCP - Pediatrics 10/29/09 Donna Pacheco MD PCP - General Pediatrics 04/09/15 documented as of this encounter
--- OUTSIDE RECORDS SUMMARY | 2024-09-27 20:40 | XMS_ITS | Encounter Summary ---
Author Organization [facility] Address [address] [place] [address] Care Team Providers Care Ski Lift Mechanic Name Role Phone Unavailable Primary Care Provider Unavailabl e Reason for Visit * Reason Onset Date Comments [facility] Encounter Details Date Type Department Care Team (Late st Contact Info) Description 08/14/2020 Patient Outreach [facility] Care Management - [place] [address] Floor [place], [place] [id number] Eleanor Higgins, field service poultry technician ([facility]) Social History Tobacco Use Types Packs/Day Years Used Date Smoking Tobacco: Some Days Smokeless Tobacco: Never Alcohol Use Standard Drinks/Week Comments Yes 0 (1 standard drink = 0.6 oz pur e alcohol) Sex and Gender Information Value Date Recorded Sex Assigned at Not on file Gender Identity Not on file Sexual Orientation Not on file COVID-19 Exposure Response Date Recorded In the last month, have you been in contact with someone who was confirmed or suspected to have Coronavirus / COVID-19? No / Unsure 08/10/2020 8:45 AM DRILL DOCTOR documented as of this encounter Progress Notes * Eleanor Higgins, RN - 08/14/2020 1:16 PM CST Chart reviewed by [facility] RN-Commercial Care Management. Initial call attempt was made to patient POST ED. Reached patient's mother. No PHI noted. Unable to discuss patient information. Patient's mother did not agree to take CM's contact info. For patient. Unable to request callback from patient. No other numbers listed to attempt patient contact. CM ACTIONS:Follow up: No additional outreach at this time. [facility] Case Management Nurse Eleanor Higgins is available to assist member with accessing care/services from [facility] for further health needs. CM can be reached at [phone]. Eleanor KRISHNA, RN, [facility] Visual Designer II [facility] Care Management-[address] , [address] [place] [address] Desk: [phone] documented in this encounter Plan of Treatment Not on file documented as of this encounter Visit Diagnoses Not on filedocumented in this encounter
--- OUTSIDE RECORDS SUMMARY | 2024-09-27 20:40 | XMS_ITS | Continuity of Care Document ---
Author Organization [facility] Address [address] [place] [address] Phone Care Team Providers Care Subpoena Server Name Role Phone Michael Rodrigez MD Unavailable Unavailable Advance Directives Directive Yes / No Effective Date File Name No Information Encounters Encounter Description Practice Location Reason(s) For Visit Diagnoses Date Provider Providers Copied on Encounter [facility], [address], [place], [place], [id number], [place] tel:[phone] [facility] NASAL [facility] SINUS DIS NECCHRONIC SINUSITIS NOS Elia Rodriguez. [address], [id number], [place]. tel:[phone] Family History Family Member Type Diagnosis Age At Onset No Information Payers Payer name Insurance type Covered alliance party ID Authoriza tion(s) No Information Social History Type Description Quantity Date Captured Comments Sex Male Smoking Status No Information Vital Signs Date / Time: Height Weight BMI Pulse Rate Blood Pressure Temperature Respiratory Rate Body Surface Area Head Circumference Head Circ. Percentile Wt./Kenneth. Percentile BMI percentile Pulse Ox Inhaled Ox 3:59 PM 43.30 in 38.00 lbs 14.2 8 kg/m eter (2) Chief Complaint And Reason For Visit No Information Reason For Referral Reason For Referral No Information History Of Present Illness Encounter Date Complaint History Of Prese nt Illness No Information Functional Status Date Functional Assessmen t No Information Instructions Date Instruction Additional Infor mation No Information Assessments Type Assessment Date No Information Patient Care Teams Name Effective Dates (start - stop) Status Members No Information
--- OUTSIDE RECORDS SUMMARY | 2024-09-27 20:40 | XMS_ITS | Encounter Summary ---
Author Organization [facility] Address [address] [facility] [place] [address] Care Team Providers Care Ob Gyn Physician Assistant Name Role Phone Lulu Orr MD Unavailable Lulu Orr MD Primary Care Provider [phone] Reason for Visit * Reason Comments Ear Pain Encounter Details Date Type Department Care Team (Late st Contact Info) Description 01/07/2013 9:40 AM CDT Office Visit [facility] Medical [facility] - Pediatrics [address] [place] [phone] Lulu Orr MD [address] [place] [phone] Acute serous otitis media (Primary Dx); Aphthous ulcer Social History Tobacco Use Types Packs/Day Years Used Date Smoking Tobacco: Never Assessed Sex and Gender Information Value Date Recorded Sex Assigned at Not on file Gender Identity Not on file Sexual Orientation Not on file documented as of this encounter Last Filed Vital Signs Vital Sign Reading Time Taken Comments Blood Pressure - - Pulse - - Temperature 36.7 ??C (98 ??F) 01/07/2013 9:49 AM CDT Respiratory Rate - - Oxygen Saturation - - Inhaled Oxygen Concentration - - Weight 36.1 kg (79 lb 9.6 oz) 01/07/2013 9:49 AM CDT Height - - Body Mass Index - - documented in this encounter Patient Instructions * Patient Instructions* Lulu Orr MD - 01/07/2013 10:03 AM CDT . documented in this encounter Progress Notes * Lulu Orr MD - 01/07/2013 9:49 AM CDT SUBJECTIVE: Hector Alonzo is a 12 y.o. male brought by mother with 2 days history of pain in both ears, and dry cough Parents observations of the patient at home are normal activity, mood and playfulness, normal appetite and normal fluid intake. Also has canker sores inside the left of his mouth for a little over a week. It is painful with eating. OBJECTIVE: Temp(Src) 98 ??F (Temporal Artery) Wt 79 lb 9.6 oz (36.106 kg) General appearance: alert, well appearing, and in no distress. Ears: clear fluid behind both tm's Nose: normal and patent, no erythema, discharge or polyps Oropharynx: aphthous ulcer inside left cheek and mucous membranes moist, pharynx normal without lesions Neck: supple, no significant adenopathy Lungs: clear to auscultation, no wheezes, rales or rhonchi, symmetric air entry Heart - regular rate and rhythm, normal S1 and S2, no murmurs ASSESSMENT: bilateral serous Otitis Media apthous ulcer PLAN: See orders for this visit as documented in the electronic medical record. Symptomatic therapy suggested: use acetaminophen, ibuprofen prn. Call or return to clinic prn if these symptoms worsen or fail to improve as anticipated. documented in this encounter Plan of Treatment Not on file documented as of this encounter Visit Diagnoses Diagnosis Acute serous otitis media- Primary Aphthous ulcer Oral aphthae documented in this encounter Care Teams Ob Gyn Physician Assistant Relationship Specialty Start Date End Date Lulu Orr MD PCP - Pediatrics 10/29/09 Lulu Orr MD PCP - General Pediatrics 09/30/11 04/02/14 documented as of this encounter
--- OUTSIDE RECORDS SUMMARY | 2024-09-27 20:40 | XMS_ITS | Encounter Summary ---
Author Organization [facility] Address [address] [place] [address] Care Team Providers Care Ton Container Filler Name Role Phone Lulu Orr MD Unavailable Donna Pacheco MD Primary Care Provider [phone] Reason for Visit * Reason Onset Date Comments Complete Physical Exam 04/10/2015 Encounter Details Date Type Department Care Team (Late st Contact Info) Description 04/10/2015 10:45 AM CDT Office Visit [facility] - Pediatrics [address] [place] [phone] Donna Pacheco MD [address] [place] [phone] Routine or child health check (Primary Dx) Social History Tobacco Use Types [...] Sign Reading Time Taken Comments Blood Pressure 104/66 04/10/2015 10:53 AM CDT Pulse 68 04/10/2015 10:53 AM CDT Temperature - - Respiratory Rate - - Oxygen Saturation - - Inhaled Oxygen Concentration - - Weight 49 kg (108 lb) 04/10/2015 10:53 AM CDT Height 167.3 cm (5' 5.88 ) 04/10/2015 10:53 AM C DT Body Mass Index 17.5 04/10/2015 10:53 AM CDT Body Mass Index Percentile 23.29% 04/10/2015 10: 53 AM CDT Growth Chart: [facility] (Boys, 2-2 0 Years) documented in this encounter Patient Instructions * Patient Instructions* Alina Espinoza RN - 04/10/2015 10:54 AM CDT YOUR GROWING CHILD: 12 TO 14 YEARS Child???s Name: Hector Alonzo Today???s Date: 04/10/2015 BP 104/66 mmHg Pulse 68 Wt 48.988 kg (108 lb) BMI 17.50 kg/m2 Wt Readings from Last 1 Encounters: 04/10/15 48.988 kg (108 lb) (41 %*, Z = -0.22) * Growth percentiles are based on [facility] 2-20 Years data. 41%ile (Z=-0.22) based on CDC 2-20 Years rhhfll-hox-qpe data using vitals from 04/10/2015. Ht Readings from Last 1 Encounters: 04/10/15 1.673 m (5' 5.87 ) (67 %*, Z = 0.43) * Growth percentiles are based on [facility] 2-20 Years data. 67%ile (Z=0.43) based on CDC 2-20 Years xiwqpbu-tii-pig data using vitals from 04/10/2015. IMMUNIZATIONS One of the best ways to [...] they or someone they know is beingbullied. It???s a good idea to give your child chores to do around the house. Some age appropriate chores include: 1. Wash dishes 2. Prepare simple family meals 3. Deeth leaves 4. Take the trash out for pick-up 5. Be responsible for feeding and watering the family pet 6. Keep bedroom and designates room in house clean 7. Vacuum individual rooms 8. Be responsible for homework Limit TV and electronic device time to [...] boards, scooters, horses, pogo sticks, etc. CAR SEATS Children should stay in a booster seat until adult belts fit correctly (usually when a child reaches about 4' 9 in height and is between 8 and 12 years of age). [place] and [place] law, effective May 31, 2006, says your child must be in a booster seat if they are ages 4 through 7 who weigh at least 40 pounds, unless they are 80 pounds or 4???9?? tall. BE SURE THE FAMILY RULE REGARDING CAR RESTRAINTS FOR ALL PASSENGERS IS ALWAYS OBEYED AND THAT YOUR CHILD IS IN AN APPROVED CAR SEAT. MAKE SURE YOUR CHILD IS SECURED IN THE CAR SEAT AND JUST IMPORTANTLY, MAKE SURE THE CAR SEAT IS PROPERLY SECURED IN THE CAR. DO NOT ALLOW ANYONE TO SMOKE AROUND YOUR CHILD. DIET Make sure that your child is eating breakfast in the morning school bus dispatcher. Encourage them to eat at least 3 [...] Where can I go for more information? [place] [employer] ( ) www.aap.org, HealthyChildren.org www.healthychildren.org Website and free downloadable andrews for smartphones: http://www.Swype.[employer]/ and http://www.Intermedia/ documented in this encounter Progress Notes * Donna Pacheco MD - 04/10/2015 11:36 AM CDT Adolescent WCC Reviewed Nurse's Adolescent Note PHX: healthy twin Medications: none ROS Stomachaches, Headaches: No Constipation/Diarrhea: No Girls: Menses N/A Social History: School: Going to start at [employer], Grade 9th. Doing well in school: Yes Home: lives with parents, siblings Activity/Exercise:baseball With exercise, CP, SOB, dizziness? No Joint Pains? No Hx of concussion? no Alcohol: no Drugs:no Sex:no Smoking:no Clsbcgdugt-KDK-1 score :Neg see screening section Physical Exam: Wt Readings from Last 3 Encounters: 04/10/15 48.988 kg (108 lb) (41 %*, Z = -0.22) 12/10/14 47.356 kg (104 lb 6.4 oz) (42 %*, Z = -0.20) 11/13/14 46.539 kg (102 lb 9.6 oz) (40 %*, Z = -0.25) * Growth percentiles are based on CDC 2-20 Years data. Ht Readings from Last 3 Encounters: 04/10/15 1.673 m (5' 5.87 ) (67 %*, Z = 0.43) 12/10/14 1.657 m (5' 5.25 ) (71 %*, Z = 0.54) 11/13/14 1.654 m (5' 5.12 ) (72 %*, Z = 0.58) * Growth percentiles are based on CDC 2-20 Years data. 41%ile (Z=-0.22) based on CDC 2-20 Years mskaxk-uno-kzm data using vitals from 04/10/2015. 67%ile (Z=0.43) based on CDC -20 Years aivmpln-xec-wqt data using vitals from 04/10/2015. BP 104/66 mmHg Pulse 68 Wt 48.988 kg (108 lb) BMI 17.50 kg/m2 Blood pressure percentiles are 21% systolic and 57% diastolic based on 2000 NHANES data. GENERAL: Alert, NAD EYES: PERRLA, EOMI, red reflex bilaterally EARS: TM's wnl NOSE: nasal passages clear NECK: supple, no masses, no lymphadenopathy RESP: clear to auscultation bilaterally CV: RRR, normal S1/S2, no murmurs, clicks, or rubs. ABD: soft, nontender, no masses, no hepatosplenomegaly, normal bowel sounds : normal male, testes descended bilaterally, no inguinal hernia, no hydrocele, Dustin IV EXTREMITIES: Full range of motion of all extremities SPINE: Straight SKIN: no rashes or lesions Impression: Well child with normal growth and development. Plan: Anticipatory guidance discussed included nutrition, safety, dentist, exercise. Vaccines: none BMI> 85%: No Classification of weight: healthy Blood Pressure interpretation:normal Follow up in 1 year. * Alina Espinoza RN - 04/10/2015 10:54 AM CDT Nurse Adolescent Screen Parental/Patient Concerns: Scaly skin around toes; right great toe coming off. Diet: Milk 2%, up to 8 ounces per day. Vegetables: fair, fruits: fair, Dental: regular dental visits? Yes documented in this encounter Plan of Treatment Not on file documented as of this encounter Goals Goal Patient Goal Type Associated Problems Recent Progress Patient-Stated? Author Use safety retraint in car Lifestyle Not on track( 018 2:17 PM CDT) No Alina Ruffin RN documented as of this encounter Visit Diagnoses Diagnosis Routine infant or child health check- Primary documented in this encounter Care Teams Ton Container Filler Relationship Specialty Start Date End Date Lulu Orr MD PCP - Pediatrics 10/29/09 Donna Pacheco MD PCP - General Pediatrics 04/09/15 documented as of this encounter
--- OUTSIDE RECORDS SUMMARY | 2024-09-27 20:40 | XMS_ITS | Encounter Summary ---
Author Organization [facility] Address [address] [place] [address] Care Team Providers Care Physical Therapy Aide Name Role Phone Lulu Orr MD Unavailable Lulu Orr MD Primary Care Provider [phone] Reason for Visit * Reason Comments Sore Throat Encounter Details Date Type Department Care Team (Late st Contact Info) Description 06/15/2012 9:30 AM CDT Office Visit [facility] - Pediatrics [address] [place] [phone] Donna Pacheco MD [address] [place] [phone] Sore throat (Primary Dx) Social History Tobacco Use Types Packs/Day Years Used Date Smoking Tobacco: Never Assessed Sex and Gender Information Value Date Recorded Sex Assigned at Not on file Gender Identity Not on file Sexual Orientation Not on file documented as of this encounter Last Filed Vital Signs Vital Sign Reading Time Taken Comments Blood Pressure 110/61 06/15/2012 10:32 AM CDT Pulse 74 06/15/2012 10:32 AM CDT Temperature 36.9 ??C (98.5 ??F) 06/15/2012 1 0:32 AM CDT Respiratory Rate - - Oxygen Saturation - - Inhaled Oxygen Concentration - - Weight 34.1 kg (75 lb 3.2 oz) 2 10:32 AM CDT Height 147.3 cm (4' 10 ) 06/15/2012 10: 32 AM CDT Body Mass Index 15.72 06/15/2012 10:32 AM CDT Body Mass Index Percentile 19.94% 06/15 10:32 AM CDT Growth Chart: [facility] (Boys, 2-2 0 Years) documented in this encounter Patient Instructions * Patient Instructions* Arash Fuentes MD - 06/15/2012 10:38 AM CDT Pharyngitis in Children GENERAL INFORMATION: What is pharyngitis? Pharyngitis is also called sore throat. It is an inflammation (swelling) or infection of the tissues and structures in your child's pharynx (throat). The symptoms of pharyngitis may be mild or severe. Your child may have pharyngitis many times a year. What causes pharyngitis? ?? Viral pharyngitis: Pharyngitis in children is usually caused by a virus, such as cold or flu viruses. Pharyngitis is common in adolescents with an illness called infectious mononucleosis (mono). Traverse is caused by the Justen-Du virus. ?? Bacterial pharyngitis: Pharyngitis may be caused by bacteria. The most common bacteria that cause pharyngitis is group A streptococcus (strep throat). Adolescents who are sexually active can get asore throat from gonorrhea or other sexually shared bacteria. How is pharyngitis spread to other people? Pharyngitis can spread when an infected person coughs orsneezes. Pharyngitis can also be spread if the person shares food and drinks. A carrier can also spread pharyngitis. A carrier is a person who has the bacteria in his throat but does not have symptoms. Germs are easily spread in schools, daycare centers, work, and at home. Some germs that cause pharyngitis may be passed between adolescents who are sexually active. What are the signs and symptoms of pharyngitis? ?? Your child may have any of the following with viral pharyngitis: ?? Cough ?? Hoarseness ?? Runny or stuffy nose ?? Irritated, watery eyes ?? Diarrhea ?? A rash on his body or in his mouth ?? Your child may have any of the following with bacterial pharyngitis: ?? Sudden pain in his throat, and pain when he swallows ?? Fever and headache ?? Red, swollen throat and bad breath ?? Whitish-yellow patches on the back of his throat ?? Nausea (sick to his stomach), vomiting (throwing up), and stomach pain ?? Tender, swollen lumps on the sides of his neck ?? Rash that looks like a sunburn with little bumps How is pharyngitis diagnosed? ?? Signs and symptoms: Your child's caregiver will look into your child's throat and feel the sidesof his neck and jaw. The signs and symptoms that your child has may help show whether he has an infection. ?? Tests: Your child's caregiver may do a throat culture. A cotton swab is rubbed against the back of your child's throat. This test may show if bacteria are causing your child's sore throat and the type of bacteria that are causing it. How is pharyngitis treated? Pharyngitis usually gets better without treatment within a few days. With treatment, your child may feel better faster. He may be able to return to school more quickly. Treatment may help prevent the spread of infection to others. It may also decrease your child's risk of heart or kidney problems as a result of the infection. Your child may need any of the following: ?? Medicines: ?? Ibuprofen or acetaminophen: Ibuprofen and acetaminophen are atyu-ldo-dxmmmee medicines that are given to decrease pain and fever. Ask your child's caregiver what medicine to give your child, and how much and how often to give it. Do not give aspirin to children under 18 years of age. Your child may develop a very serious illness called Yohannes syndrome if he takes aspirin when he is ill. Read medicine labels to see if your child's medicine has aspirin in it. ?? Antibiotics: Your child may need to take antibiotics if bacteria are the cause of his pharyngitis. Follow caregivers' instructions carefully. Make sure your child finishes all the doses of antibiotics. Your child is still contagious (can infect others) for 24 hours after he starts to take the antibiotics. If other family members have symptoms of pharyngitis, they may also need to be treated. ?? Steroids: Steroid medicine may be given to reduce swelling in your child's throat. ?? Surgery: If your child often gets pharyngitis with symptoms such as fever and pain, he may need his tonsils removed. Tonsils are tissues on both sides of your child's throat that contain cells to fight infection. Your child may have pharyngitis less often after his tonsils are removed. What are the risks of pharyngitis? ?? If your child takes antibiotics, he may have side effects, such as nausea or diarrhea. He also may have an allergic reaction to the medicine. Frequent antibiotic use may decrease how well the medicine can fight infection. Your child may still get throat infections even if he has surgery to take out his tonsils. ?? If your child has a bacterial infection and does not take antibiotics, the infection may get worse. It may spread to his ears, sinuses, and other body areas. Your child may have problems breathingor swallowing. Without treatment, pharyngitis may lead to more serious illnesses, such as peritonsillar abscess or meningitis. Your child may get rheumatic fever, which can lead to problems with his heart or joints. The infection may spread to his neck veins and lungs. Ask your child's caregiver for more information about these risks. How can I help care for my child with pharyngitis at home? ?? Rest: Have your child rest as much as possible. ?? Increase liquids: Give your child liquids so that he does not get dehydrated. Give him liquids that are easy to swallow and will soothe his throat. ?? Sore throat relief: If your child is 12 years or older, give him throat lozenges or hard candy to help decrease his throat pain. If your child can gargle, give him one-quarter of a teaspoon of salt mixed in 1 cup of warm water to gargle. ?? Add humidity: Your child may breathe more easily after he breathes in mist or steam. You may want to use a steam or cool mist vaporizer in your child's room. Ask caregivers how often and what to use to clean the device. You may run a hot water shower to make steam in the bathroom. Close the bathroom door and sit with your child near the shower as he breathes in the steam. Do not put your childin the hot shower. How can I help prevent the spread of pharyngitis? Wash your hands and your child's hands often. Keep your child away from other people while he is still contagious. Ask your child's caregiver how long your child is contagious. If your child is taking antibiotics, he should not share food or drinks until he has taken all the doses of antibiotics. Do not let your child share toys or pacifiers. Washthese items with soap and hot water. When should my child return to school or daycare? If your child has started antibiotics, ask his caregiver when he may return to school or daycare. If your child is not on antibiotics, his symptoms such as fever or sore throat may go away on their own. When his symptoms go away, your child may return to daycare or school. Where can I find more information about pharyngitis? ?? Centers for Disease Control and Prevention ([facility]) [address] [id number] Phone: Web Address: http://www.cdc.gov/ When should I contact my child's caregiver? Contact your child's caregiver if: ?? Your child has throat pain, trouble swallowing, fever, or other symptoms that are not getting better or are getting worse. ?? Your child has a bumpy, rough rash on his body. He also has reddish cheeks and a red, swollen tongue. ?? Your child has new ear pain, headaches, or pain around his eyes. ?? Your child snores or pauses in his breathing when he sleeps. When should I seek immediate help? Seek immediate care or call 911 if: ?? Your child suddenly has trouble breathing or swallowing, turns blue, or drools. ?? Your child has swelling or pain in his jaw area. ?? Your child has voice changes, or it is hard to understand his speech. ?? Your child has a stiff neck. ?? Your child has not urinated in 12 hours or is weak and tired. CARE AGREEMENT: You have the right to help plan your child's care. Learn about your child's health condition and how it may be treated. Discuss treatment options with your child's caregivers to decide what care you want for your child. Copyright ?? 2012. [employer]. All rights reserved. Information is for End User's use only andmay not be sold, redistributed or otherwise used for commercial purposes. The above information is an educational consultant only. It is not intended as medical advice for individual conditions or treatments. Talk to your doctor, nurse or pharmacist before following any medical regimen to see if it is safe and effective for you. documented in this encounter Progress Notes * Heather Jasso RN - 06/20/2012 9:22 AM CDTQuick Note: Left message regarding normal throat cx results--LB * Donna Pacheco MD - 06/20/2012 9:12 AM CDTQuick Note: Let mom know that throat cx is negative * Donna Pacheco MD - 06/16/2012 10:48 AM CDT I have seen and evaluated this patient and agree with resident's hx and physical. Tonsils were not red, but L>R Likely viral etiology-mono not very likely as no URI sx and physical exam not suggestive of this. Likely not peritonsillar abscess as tonsil not red and not fever. * Arash Fuentes MD - 06/15/2012 10:31 AM CDT SUBJECTIVE: Hector Alonzo is a 12 y.o.brought by mother who complains of sore throat for 7 day(s). Fever: No Headache:Yes Stomach ache:No URI symptoms: No OBJECTIVE: BP 110/61 Pulse 74 Temp 98.5 ??F Wt 75 lb 3.2 oz (34.11 kg) BMI 15.72 kg/m2 General appearance: alert, well appearing, and in no distress. Ears: bilateral TM's and external ear canals normal Nose: normal and patent, no erythema, discharge or polyps Oropharynx: Left tonsil enlarged without exudate, right tonsil normal, no palatal petechiae or exudate throughout, no mouth sores, throat culture obtained Neck: bilateral symmetric anterior adenopathy Lungs: clear to auscultation, no wheezes, rales or rhonchi, symmetric air entry Heart - regular rate and rhythm, normal S1 and S2, no murmurs Abdomen: Mild diffuse abdominal tenderness, no guarding or rebound, ND, normal BS's, no HSM ASSESSMENT: Pharyngitis, likely viral Also possible Strep throat vs mononucleosis vs early peritonsillar abscess given L tonsillar hypertrophy PLAN: No antibiotics for now Push fluids, encourage rest Send throat culture See orders for this visit as documented in the electronic medical record Strep culture sent Symptomatic treatment discussed. Arash Fuentes MD documented in this encounter Plan of Treatment Not on file documented as of this encounter Procedures Procedure Name Priority Date/Time Associated Diagnosis Comments CULTURE THROAT Routine 06/15/2012 12:30 PM CDT Sore throat STREP A SCREEN - POINT OF CARE (AMB) Routine 06/15/2012 10:30 AM CDT Sore throat documented in this encounter Results * CULTURE THROAT (06/15/2012 12:30 PM CDT) Upper Respiratory Culture Final report [facility] ACCOUNT BILL Result 1 [facility] ACCOUNT BILL Comment:Routine respiratory lexii Miscellaneous samples (specimen) ENTIRE THROAT (SURFACE REGION OF NECK) / Unknown 06/15/2012 12:30 PM CDT 06/15/2012 9:42 PM CDT Narrative Resulting Agency Comment [facility] [place] [id number] [facility] ??[facility] [phone] Donna Pacheco MD LAB - MICROBIOLOGY O RDERABLES [facility] ACCOUNT BILL * STREP A SCREEN - POINT OF CARE (AMB) (06/15/2012 10:30 AM CDT) Strep A Rapid POCT Negative Negative Strep A Internal Control NEGATIVE - POSITIVE Throat swab (specimen) ENTIRE THROAT (SURFACE REGION OF NECK) / Unknown 06/15/2012 10:30 AM CDT Donna Pacheco MD LAB - POINT OF CARE ORDERABLES documented in this encounter Visit Diagnoses Diagnosis Sore throat- Primary Acute pharyngitis documented in this encounter Care Teams Physical Therapy Aide Relationship Specialty Start Date End Date Lulu Orr MD PCP - Pediatrics 10/29/09 Lulu Orr MD PCP - General Pediatrics 09/30/11 04/02/14 documented as of this encounter
--- OUTSIDE RECORDS SUMMARY | 2024-09-27 20:40 | XMS_ITS | Encounter Summary ---
Author Organization [facility] Address [address] [place]: Epic Prelude ADT [place] [id number] Care Team Providers Care Skein Winding Operator Name Role Phone Unavailable Primary Care Provider Unavailabl e Encounter Details Date Type Department Care Team (Latest Contact Info) Description 08/10/2020 Travel Social History Tobacco Use Types Packs/Day Years [...] COVID-19? No / Unsure 08/10/2020 8:45 AM TELEVISION REPAIRER documented as of this encounter Plan of Treatment Not on file documented as of this encounter Visit Diagnoses Not on filedocumented in this encounter
--- OUTSIDE RECORDS SUMMARY | 2024-09-27 20:40 | XMS_ITS | Encounter Summary ---
Author Organization [facility] Address [address] [facility] [place] [address] Care Team Providers Care Community Liaison Name Role Phone Lulu Orr MD Unavailable Lulu Orr MD Primary Care Provider [phone] Reason for Visit * Reason Comments Sore Throat all symptoms started last night Pain Abdominal left abdominal pain Fever highest 100 this AM Headache Encounter Details Date Type Department Care Team (Late st Contact Info) Description 09/11/2013 1:15 PM METALWORKER Office Visit [facility] Medical [facility] - Pediatrics [address] [place] [phone] Lulu Orr MD [address] [place] [phone] Acute pharyngitis (Primary Dx); Tinea corporis; Chest pain on respiration Social History Tobacco Use Types Packs/Day Years Used Date Smoking Tobacco: Never Assessed Sex and Gender Information Value Date Recorded Sex Assigned at Not on file Gender Identity Not on file Sexual Orientation Not on file documented as of this encounter Last Filed Vital Signs Vital Sign Reading Time Taken Comments Blood Pressure 114/76 09/11/2013 1:26 PM METALWORKER Pulse 84 09/11/2013 1:26 PM METALWORKER Temperature 36.9 ??C (98.4 ??F) 09/11/2013 1:26 PM CS T Respiratory Rate - - Oxygen Saturation 100% 09/11/2013 1:26 PM METALWORKER Inhaled Oxygen Concentration - - Weight 38.1 kg (84 lb) 09/11/2013 1:26 PM METALWORKER Height - - Body Mass Index - - documented in this encounter Patient Instructions * Patient Instructions* Lulu Orr MD - 09/11/2013 1:36 PM METALWORKER Tinea Corporis( Ring Worm) Ring Worm is [...] you stop using the medicine too soon. Hector Alonzo most likely has viral sore [...] or Advil containing product at a time. LWORKER documented in this encounter Progress Notes * Heather Jasso RN - 09/14/2013 1:29 PM CSTQuick Note: Left message regarding normal throat cx results--LB; LWORKER * Lulu Orr MD - 09/14/2013 12:48 PM CSTQuick Note: Please call the parent and let him/her know the results are normal. LWORKER * Lulu Orr MD - 09/11/2013 1:46 PM CST SUBJECTIVE: Hector Alonzo is a 13 y.o.brought by mother who complains of sore throat for 1 day(s). Fever: Yes, 100 T max Headache:No Stomach ache:Yes, on left lower side of abdomen, no vomiting and no diarrhea URI symptoms: No He's also complaining of chest pain that worsens on inspiration, no respiratory distress or coughing. OBJECTIVE: Temp 98.4 ??F (Temporal Artery) Wt 38.102 kg (84 lb) General appearance: alert, well appearing, and in [...] murmurs Abdomen:NT, ND, normal BS's, no HSM Skin: scaly erythematous rash at the base of penis extending towards scrotum ASSESSMENT: Pharyngitis possible Strep throat Chest pain on inspiration- pleuritic chest pain Tinea Corporis PLAN: See orders for this visit as documented in the electronic medical record Strep culture sent Lotrimin cream local bid for 14 days Symptomatic treatment discussed. LWORKER documented in this encounter Plan of Treatment Not on file documented as of this encounter Procedures Procedure Name Priority Date/Time Associated Diagnosis Comments STREP A SCREEN - POINT OF CARE (AMB) Routine 09/11/2013 2:45 PM METALWORKER Acute pharyngitis CULTURE STREP GROUP A Routine 09/11/2013 1:58 PM METALWORKER Acute pharyngitis documented in this encounter Results * STREP A SCREEN - POINT OF CARE (AMB) (09/11/2013 2:45 PM METALWORKER) Strep A Rapid POCT Negative Negative Strep A Internal Control NEGATIVE - POSITIVE Throat swab (specimen) ENTIRE THROAT (SURFACE REGION OF NECK) / Unknown 09/11/2013 2:45 PM METALWORKER Lulu Orr MD LAB - POINT OF CARE ORDERABLES * CULTURE STREP GROUP A (09/11/2013 1:58 PM METALWORKER) Beta-Strep Culture, Group A Only Negative [facility] ACCOUNT BILL Miscellaneous samples (specimen) ENTIRE THROAT (SURFACE REGION OF NECK) / Unknown 09/11/2013 1:58 PM METALWORKER 09/11/2013 9:40 PM METALWORKER Narrative Resulting Agency Comment [facility] [address] ??[facility] [phone] Lulu Orr MD LAB - MICROBIOLOGY O RDERABLES [facility] ACCOUNT BILL documented in this encounter Visit Diagnoses Diagnosis Acute pharyngitis- Primary Tinea corporis Dermatophytosis of the body Chest pain on respiration Painful respiration documented in this encounter Care Teams Community Liaison Relationship Specialty Start Date End Date Lulu Orr MD PCP - Pediatrics 10/29/09 Lulu Orr MD PCP - General Pediatrics 09/30/11 04/02/14 documented as of this encounter
--- OUTSIDE RECORDS SUMMARY | 2024-09-27 20:40 | XMS_ITS | Encounter Summary ---
Author Organization [facility] Address [address] [place] [address] Care Team Providers Care Legal Editor Name Role Phone Lulu Orr MD Unavailable Lulu Orr MD Primary Care Provider [phone] Reason for Visit * Reason Comments Sore Throat Encounter Details Date Type Department Care Team (Latest Contact Info) Description 08/09/2012 3:50 PM ASSOCIATE DIRECTOR FINANCIAL AID Office Visit [facility] - Pediatrics [address] [place] [phone] Lulu Orr MD [address] [place] [phone] Streptococcal pharyngitis (Primary Dx) Social History Tobacco Use [...] - - Temperature 37 ??C (98.6 ??F) 08/09/2012 3:58 PM ASSOCIATE DIRECTOR FINANCIAL AID Respiratory Rate - - Oxygen Saturation - - Inhaled Oxygen Concentration - - Weight 34.5 kg (76 lb) 08/09/2012 3:58 PM ASSOCIATE DIRECTOR FINANCIAL AID Height - - Body Mass Index - - documented in this encounter Patient Instructions * Patient Instructions* Lulu Orr MD - 08/09/2012 4:21 PM ASSOCIATE DIRECTOR FINANCIAL AID Hector Alonzo tested positive for strep throat today in the office. I have called in antibioticsto your pharmacy, he will be contagious for 24 hours after starting the antibiotics, after that he can go back to school. It is spread by contact, avoid sharing drinks or towels. Please change toothbrush after 10 days of antibiotic therapy. For pain relief please give him lozenges, and have him do salt and water gargles. Use tyelenol per dose chart for pain and fever as needed every four hours. CIATE DIRECTOR FINANCIAL AID documented in this encounter Progress Notes * Lulu Orr MD - 08/09/2012 3:59 PM CST SUBJECTIVE: Hector Alonzo is a 12 y.o.brought by mother who complains of sore throat for worsening over the past 14 day(s). Pain is constant, worse with swallowing. Brother has a cough, some friends at schoolsick with sore throat. Normal activity, normal appetite, normal fluid intake. Several episodes of strep in the past, last episode ~6 months. Fever: No Headache:Yes, yesterday and today Stomach ache:Yes, last Wednesday and today URI symptoms: Yes, coughing for 2 weeks and bilateral ear pain off and on for 2 weeks (right ear today) OBJECTIVE: Temp 98.6 ??F Wt 76 lb (34.473 kg) General appearance: alert, well appearing, and [...] S1 and S2, no murmurs ASSESSMENT: Pharyngitis Strep throat PLAN: See orders for this visit as documented in the electronic medical record Symptomatic treatment discussed. CIATE DIRECTOR FINANCIAL AID documented in this encounter Plan of Treatment Not on file documented as of this encounter Procedures Procedure Name Priority Date/Time Associated Diagnosis Comments STREP A SCREEN - POINT OF CARE (AMB) Routine 08/09/2012 4:22 PM ASSOCIATE DIRECTOR FINANCIAL AID documented in this encounter Results * (ABNORMAL) STREP A SCREEN - POINT OF CARE (AMB) (08/09/2012 4:22 PM ASSOCIATE DIRECTOR FINANCIAL AID) Strep A Rapid POCT Positive( A) Negative Strep A Internal Control NEGATIVE - POSITIVE Throat swab (specimen) ENTIRE THROAT (SURFACE REGION OF NECK) / Unknown Lulu Orr MD LAB - POINT OF CARE ORDERABLES documented in this encounter Visit Diagnoses Diagnosis Streptococcal pharyngitis- Primary Streptococcal sore throat documented in this encounter Care Teams Legal Editor Relationship Specialty Start Date End Date Lulu Orr MD PCP - Pediatrics 10/29/09 Lulu Orr MD PCP - General Pediatrics 09/30/11 04/02/14 documented as of this encounter
--- OUTSIDE RECORDS SUMMARY | 2024-09-27 20:40 | XMS_ITS | Encounter Summary ---
Author Organization [facility] Address [address] [place] [address] Care Team Providers Care Credit Adjuster Name Role Phone Lulu Orr MD Unavailable Lulu Orr MD Primary Care Provider [phone] Reason for Visit * Reason Comments Complete Physical Exam Encounter Details Date Type Department Care Team (Late st Contact Info) Description 05/06/2012 4:00 PM CDT Office Visit [facility] Medical [facility] - Pediatrics [address] [place] [phone] Lulu Orr MD [address] [place] [phone] Well child check (Primary Dx); Need for prophylactic vaccination with combined qjcwigsiwi-qugxmps-tz rtussis (DTP) vaccine Social History Tobacco Use Types Packs/Day Years Used Date Smoking Tobacco: Never Assessed Sex and Gender Information Value Date Recorded Sex Assigned at Not on file Gender Identity Not on file Sexual Orientation Not on file documented as of this encounter Last Filed Vital Signs Vital Sign Reading Time Taken Comments Blood Pressure 110/60 05/06/2012 3:38 PM CDT Pulse 77 05/06/2012 3:38 PM CDT Temperature 37.1 ??C (98.8 ??F) 05/06/2012 3:38 PM CD T Respiratory Rate - - Oxygen Saturation - - Inhaled Oxygen Concentration - - Weight 32.2 kg (71 lb) 05/06/2012 3:38 PM CDT Height 143.8 cm (4' 8.6 ) 05/06/2012 3:38 PM CDT Body Mass Index 15.58 05/06/2012 3:38 PM CDT Body Mass Index Percentile 18.38% 05/06/2012 3:3 8 PM CDT Growth Chart: CDC (Boys, 2-2 0 Years) documented in this encounter Patient Instructions * Patient Instructions* Lulu Orr MD - 05/06/2012 3:49 PM CDT YOUR GROWING PRETEEN CHILD Child???s Name: Hector Alonzo Today???s Date: 05/06/2012 BP 110/60 Pulse 77 Temp(Src) 98.8 ??F (Temporal) Wt 71 lb (32.205 kg) BMI 15.58 kg/m2 Wt Readings from Last 3 Encounters: 05/06/12 71 lb (32.205 kg) (25.63%*) 11/06/11 69 lb (31.298 kg) (31.13%*) 03/08/10 58 lb 6.4 oz (26.49 kg) (33.91%*) * Growth percentiles are based on CDC 2-20 Years data. Ht Readings from Last 3 Encounters: 05/06/12 4' 8.6 (1.438 m) (49.43%*) 11/06/11 4' 8 (1.422 m) (54.53%*) * Growth percentiles are based on CDC 2-20 Years data. Body mass index is 15.58 kg/(m^2). 18.22%ile based on CDC 2-20 Years BMI-for-age data. 25.63%ile based on CDC 2-20 Years tayota-kgk-saq data. 49.43%ile based on CDC 2-20 Years jjhjfjy-ctz-cex data. IMMUNIZATIONS At the time of high school physical your child may receive a Tdap booster. Other immunizations which we recommend, but that are not required are Menactra (protects again one type of bacterial meningitis), Gardisil (protects girls and women against Human Papilloma Virus), and Hepatitis A vaccine if not already given. PHYSICAL DEVELOPMENT Typically, girls show signs of pubert 2 years earlier than boys. During early adolescence, most girls experience a rapid growth spurt, changes in fat distribution, and development of secondary sexualcharacteristics such as pubic hair and breasts. For most boys, the early adolescent period mccartney the beginning of the biological changes of puberty, including testicular growth, voice changes, and development of acne, pubic hair, and nocturnal emissions. The onset of puberty and rate of sexual development can vary greatly and pre-teens should be reassurred that their own growth and development are normal. During adolescence, some teens engage in physical activity regularly and become fit while other choose sedentary behaviors such as watching TV and playing video games. These behaviors are often predictors of adult lifestyles, so it is important to recognoze these behaviors and refocus their energy into healthier pursuits such as participating in physical activities at school or after school. COGNITIVE AND MORAL DEVELOPMENT Young adolescents have increasing potential for abstract, complex thinking, although their cognition still focuses primarily on the concrete and the present, the here and now. Young teens tend to see individuals and their behaviors in somewhat rigid terms as good or bad, or right or wrong. They have not yet developed an understanding of complex relationships or long-term consequences. SOCIAL/EMOTIONAL DEVELOPMENT Puberty is a time of intense changes in emotions. Young adolescents may display erratic or doe behavior, especially with the stressses of academic achievement, sports performance, peer pressure, and changing family relationships. Families need to continue supervising the adolescent and setting appropriate limits. At the same time, they need to affirm their adolescent's growing self-efficacy and promote skills and confidence in decision making. SCHOOL As adolescents make the transition to middle school or high school and have to cope with less adultsupport and greater anonymity, they frequently experience anxiety. Scholastic demands require students to be more organized and efficient. There may be a reduction in overall academic performances for males and females. Truancy and school drop out rates also tend to rise in early adolescence. Some incentives to stay in school include participating in in-school and after-school activities such as sports, music, drama, journalism, or volunteering. School also becomes the primary setting through which peer group standards or expectations are communicated. The attraction of peer groups is a powerful phenomenon. Preparing young adolescents to deal with increasing peer pressure is an important part of health supervison. RISKY BEHAVIOR Although exploration and experimentation, usually in the company of peers, serve important developmental purposes, adolescent experimentation can also have serious health consequences. Experimentation with alcohol and tobacco are significant health concerns during early adolescence. INJURY PREVENTION More than half the injury-related deaths in this age group involve motor vehicles, with the adolscent as passenger, pedestrian, or cyclist. Few young adolescents take measures to reduce their risk ofinjury. It is important for adolescents to always wear their safety belt and helmet. RECOMMENDED READING ON PUBERTY FOR GIRLS The care and Keeping of you by Maria Isabel Nichole. documented in this encounter Progress Notes * Lulu Orr MD - 05/06/2012 3:39 PM CDT SUBJECTIVE: Hector Alonzo is a 12 y.o. male who presents to the office today for routine health care examination. Parental concerns: none DIET AND ANTICIPATORY GUIDANCE: Seat belt yes Wears a helment: yes [place] teeth twice per day: no Good variety of fruits and vegatables: yes Drinks Milk or consumes other calcium rich foods: yes Discussed school preformance: no Doing well in school: yes Likes school: yes Academic concerns : no Behavioral concerns: no Plays well with others: yes Sports or exercise: yes ROS: no wheezing, cough or dyspnea, no chest pain. No problems during sports participation in the past. PMH: Past Medical History Diagnosis Date ??? Routine or Child Health Check ??? Acute Sinusitis, Unspecified 09/23/07 ??? Acute Pharyngitis 11/24/07 ??? INFLUENZA WITH OTHER RESPIRATORY MANIFESTATIONS 11/25/07 ??? UNSPECIFIED OTITIS MEDIA 11/12/08 ??? Streptococcal Sore Throat 04/22/09 FH: Early Heart Disease No Sudden No Diabetes No OBJECTIVE: Vitals: 05/06/12 1538 BP: 110/60 Pulse: 77 Temp: 98.8 ??F Weight: 71 lb (32.205 kg) GENERAL: Well nourished and developed, healthy appearing EYES: PERRLA, EOMI EARS: TM's wnl THROAT: tonsils normal, no erythema, dentition normal NOSE: nasal passages clear NECK: supple, no masses, no lymphadenopathy RESP: clear to auscultation bilaterally CV: RRR, normal S1/S2, no murmurs, clicks, or rubs. ABD: soft, nontender, no masses, no hepatosplenomegaly : normal male genitals, no testicular masses or hernia, Dustin stage 1 MS: spine straight, FROM all joints SKIN: Normal with no acne noted. Neuro: normal ASSESSMENT: Well Child PLAN: Plans per electronic records Immunnizations per electronic medical record. Discussed weight management: no Acne treatment discussed: no Follow up yearly documented in this encounter Plan of Treatment Not on file documented as of this encounter Visit Diagnoses Diagnosis Well child check- Primary Routine infant or child health check Need for prophylactic vaccination with combined zghdvyseav-oesdxoz-vtddnvkvv (DTP) vaccine documented in this encounter Care Teams Credit Adjuster Relationship Specialty Start Date End Date Lulu Orr MD PCP - Pediatrics 10/29/09 Lulu Orr MD PCP - General Pediatrics 09/30/11 04/02/14 documented as of this encounter
--- OUTSIDE RECORDS SUMMARY | 2024-09-27 20:40 | XMS_ITS | Encounter Summary ---
Author Organization [facility] Address [address] [place] [address] Care Team Providers Care Fruit Packer Face And Fill Name Role Phone Lulu Orr MD Unavailable Reason for Visit * Reason Comments Imm Inj Encounter Details Date Type Department Care Team (Latest Contact Info) Description 08/05/2010 3:50 PM CDT Clinical Support [facility] Medical [facility] - Pediatrics [address] [place] [phone] Need for prophylactic vaccination and inoculation against [...] Primary documented in this encounter Care Teams Fruit Packer Face And Fill Relationship Specialty Start Date End Date Lulu Orr MD PCP - Pediatrics 10/29/09 documented as of this encounter
--- OUTSIDE RECORDS SUMMARY | 2024-09-27 20:40 | XMS_ITS | Encounter Summary ---
Author Organization [facility] Address [address] [place] [address] Care Team Providers Care Warp Tension Tester Name Role Phone Lulu Orr MD Unavailable Lulu Orr MD Primary Care Provider [phone] Reason for Visit * Reason Comments Pharyngitis Encounter Details Date Type Department Care Team (Late st Contact Info) Description 03/23/2014 9:45 AM CDT Office Visit [facility] - Pediatrics [address] [place] [phone] Tal Cuenca MD [address] [phone] Strep throat (Primary Dx) Social History Tobacco Use [...] - - Temperature 36.9 ??C (98.4 ??F) 03/23/2014 10:08 AM C DT Respiratory Rate - - Oxygen Saturation - - Inhaled Oxygen Concentration - - Weight 42.6 kg (94 lb) 03/23/2014 10:08 AM CDT Height - - Body Mass Index - - documented in this encounter Patient Instructions * Patient Instructions* Tal Cuenca MD - 03/23/2014 10:49 AM CDT Symptomatic treatment discussed. Start amoxil 400 mg po tid for 10 days documented in this encounter Progress Notes * Heather Jasso RN - 03/23/2014 10:08 AM CDT SUBJECTIVE: Hector Alonzo is a 13 y.o.brought by mother who complains of sore throat for 2 day(s). No cough.No rhinorrhea. Fever: Yes ^100.6 Headache:Yes Stomach ache:No URI symptoms: No OBJECTIVE: Temp 98.4 ??F (Temporal Artery) Wt 42.638 kg (94 lb) General appearance: alert, well appearing, and in no distress. Ears: bilateral TM's and external ear canals normal Nose: normal and patent, no erythema, discharge or polyps Oropharynx: mucous membranes moist, injected OP with tonsil 1+ with exudate Neck: supple, no significant adenopathy Lungs: clear to auscultation, no wheezes, rales or rhonchi, symmetric air entry Heart - regular rate and rhythm, normal S1 and S2, no murmurs Abdomen:NT, ND, normal BS's, no HSM Strep swab + ASSESSMENT: Strep throat PLAN: Symptomatic treatment discussed. Start amoxil 400 mg po tid for 10 days documented in this encounter Plan of Treatment Not on file documented as of this encounter Procedures Procedure Name Priority Date/Time Associated Diagnosis Comments STREP A SCREEN - POINT OF CARE (AMB) Routine 03/23/2014 10:48 AM CDT Strep throat documented in this encounter Results * (ABNORMAL) STREP A SCREEN - POINT OF CARE (AMB) (03/23/2014 10:48 AM CDT) Strep A Rapid POCT Positive( A) Negative Strep A Internal Control NEGATIVE - POSITIVE Throat swab (specimen) ENTIRE THROAT (SURFACE REGION OF NECK) / Unknown 03/23/2014 10:48 AM CDT Tal Cuenca MD LAB - POINT OF CA RE ORDERABLES documented in this encounter Visit Diagnoses Diagnosis Strep throat- Primary Streptococcal sore throat documented in this encounter Care Teams Warp Tension Tester Relationship Specialty Start Date End Date Lulu Orr MD PCP - Pediatrics 10/29/09 Lulu Orr MD PCP - General Pediatrics 09/30/11 04/02/14 documented as of this encounter
--- OUTSIDE RECORDS SUMMARY | 2024-09-27 20:40 | XMS_ITS | Encounter Summary ---
Author Organization [facility] Address [address] [place] [address] Care Team Providers Care Retoucher Name Role Phone Unavailable Primary Care Provider Unavailabl e Reason for Visit * Reason Comments Ingestion Patient took shrooms on , has been on bad trip since per EMS. EMS offers no additional information. Encounter Details Date Type Department Care Team (Late st Contact Info) Description 08/10/2020 8:52 AM INSTANT PRINT OPERATOR - 08/10/2020 12:29 PM INSTANT PRINT OPERATOR Emergency [facility] Emergency Department [address] [place] [address] Bandar Olivas MD NO ADDRESS ON FILE Substance induced mood disorder (Primary Dx) Discharge Disposition: Home or Self Care Social [...] COVID-19? No / Unsure 08/10/2020 8:45 AM INSTANT PRINT OPERATOR documented as of this encounter Last Filed Vital Signs Vital Sign Reading Time Taken Comments Blood Pressure 134/84 08/10/2020 8:41 AM INSTANT PRINT OPERATOR Pulse 85 08/10/2020 8:41 AM INSTANT PRINT OPERATOR Temperature 36.9 ??C (98.4 ??F) 08/10/2020 8:41 AM CS T Respiratory Rate 19 08/10/2020 8:41 AM INSTANT PRINT OPERATOR Oxygen Saturation 97% 08/10/2020 8:41 AM INSTANT PRINT OPERATOR Inhaled Oxygen Concentration - - Weight 68 kg (150 lb) 08/10/2020 8:41 AM INSTANT PRINT OPERATOR Height 177.8 cm (5' 10 ) 08/10/2020 8:41 AM INSTANT PRINT OPERATOR Body Mass Index 21.52 08/10/2020 8:41 AM INSTANT PRINT OPERATOR documented in this encounter Discharge Instructions * Discharge Instructions* Bandar Olivas MD - 08/10/2020 11:38 AM INSTANT PRINT OPERATOR Images from the original note were not included. [facility] [address] [place] [address] 9:00am to 7:00pm [facility] is proud to offer the [facility]'s first and only urgent care/walk-in clinic for adult behavioral health services. The Behavioral [facility] is a hvz-yj-e-kind collaboration with multiple community partners, bringing together the clinical expertise of [facility]???s trusted behavioral health team and the comprehensive support of local mental health resources. [facility] provides immediate access to behavioral health care without the wait for costly emergency room care. Once a patient arrives they???ll register and meet with a nurse for a triage assessment. Depending on the reason for the visit, patients may be further evaluated/assessed by a therapist, nurse practitioner, psychiatrist, peer navigator, or other behavioral health staff. The treatment team addressesurgent concerns, makes follow-up appointments, and assists with additional resources as needed. Please use parking lot [address] along [address] for easy access to [facility]. Mental Health Same Day Access A walk-in clinic serving people with mental health needs. Each walk-in will be seen by a mental health clinician. You will be assigned to an office by you after your initial appointment [address], [address] [place] [address] [address], [address] [place] [address] Wednesday thru Wednesday 8 a.m. - 5 p.m. [address] [facility] [place], [address] / Ext. [phone] Wednesday thru Wednesday 8:30-11 a.m. and 1-3 p.m. [address] [facility] [address] Wednesday thru Wednesday 7:30 AM - 11:00 AM Chemical Dependency Regardless of ability to pay Chemical dependency treatment is recommended. Below is a list of treatment providers who provide treatment regardless of ability to pay. Please call as soon as possible although providers may only answer the phone during business hours. If the provider does not take after hour phone calls, leave a message for them to call you back. These providers may have waiting lists. The National [place] on Drug and Alcohol Abuse-[place] has a crisis/referral line at 784-759-3142 or access the website at www.ncada-stl.org. The Substance Abuse Mental Health Administration has a list of providers within 100 miles of [place]. You can access that list by website http://findtreatment.[facility].gov INPATIENT STATE FUNDED DETOX FACILITY [facility] Multiple Locations [address] [place], [place] [id number] Inpt detox, (outpt detox for opiates only) RESIDENTIAL [facility] FUNDED FACILITIES [facility]-( [facility]) [phone] [address] [place] [address] [facility]- ([facility]) [phone] [address] [place] [address] (Veterans program) [facility] Treatment/SEMO Dbnmrmvlyd-[phone] Ngnaeewkko-[phone] Qdnit-[phone] [facility]-[phone] [facility] [phone] [address] [place] [address] [facility]-(women, women, children/daycare) [phone] [address] [place] [address] OUTPATIENT [facility] FUNDED FACILITIES [facility] [phone] [address] [place] [address] [facility] [phone] (must have medicaid) [address] , [address] [place] [address] [facility] Must Enroll at [facility] [phone] [address] [place] [address] [address] [facility] [address] [place] [address] [facility] Multiple Locations [phone] [facility] Multiple Locations [phone] JAGJIT /Jeff [phone] Narcotics Anonymous [phone] If you need assistance getting established with a primary care provider for follow up and/or management of prescriptions, regardless of insurance status, call Monserrat Warner Community Medical Research Associate at [phone]. If you need help with affording medications, housing instability, hunger/food access, utilities, transportation or safety call Melinda Noel Community Health Worker, at [phone]. ANT PRINT OPERATOR documented in this encounter Progress Notes * Ирина Pham M - 08/10/2020 11:24 AM CST Images from the original note were not included. contacted Behavioral Health requesting resources for substance abuse and outpatient resources for behavioral health. reports that pt does not need a BH evaluation currently. Intake Counselor has provided resources in discharge paperwork which can be found below: [facility] [address] [place] [address] 9:00am to 7:00pm [facility] is proud to offer the [facility]'s first and only urgent care/walk-in clinic for adult behavioral health services. The [facility] is a tyu-jq-s-kind collaboration with multiple community partners, bringing together the clinical expertise of [facility]???s trusted behavioral health team and the comprehensive support of local mental health resources. [facility] provides immediate access to behavioral health care without the wait for costly emergency room care. Once a patient arrives they???ll register and meet with a nurse for a triage assessment. Depending on the reason for the visit, patients may be further evaluated/assessed by a therapist, nurse practitioner, psychiatrist, peer navigator, or other behavioral health staff. The treatment team addressesurgent concerns, makes follow-up appointments, and assists with additional resources as needed. Please use parking lot [address] along [address] for easy access to [facility]. Mental Health Same Day Access A walk-in clinic serving people with mental health needs. Each walk-in will be seen by a mental health clinician. You will be assigned to an office by you after your initial appointment [address] [place] [address] [address] [facility], [address] [place] [address] Wednesday thru Wednesday 8 a.m. - 5 p.m. [address] [facility] [place], [address] / Ext. [phone] Wednesday thru Wednesday 8:30-11 a.m. and 1-3 p.m. [address] [facility] [address] Wednesday thru Wednesday 7:30 AM - 11:00 AM Chemical Dependency Regardless of ability to pay Chemical dependency treatment is recommended. Below is a list of treatment providers who provide treatment regardless of ability to pay. Please call as soon as possible although providers may only answer the phone during business hours. If the provider does not take after hour phone calls, leave a message for them to call you back. These providers may have waiting lists. The National [place] on Drug and Alcohol Abuse[place] has a crisis/referral line at 454-438-1059 or access the website at www.ncada-st.org. The Substance Abuse Mental Health Administration has a list of providers within 100 miles of [place]. You can access that list by website http://findtreatment.samhsa.gov INPATIENT STATE FUNDED DETOX FACILITY [facility] Multiple Locations [address] [place], [place] [id number] Inpt detox, (outpt detox for opiates only) RESIDENTIAL STATE FUNDED FACILITIES [facility]-( MEN) [phone] [address] [place] [address] [facility]- (MEN) [phone] [facility] [place] [address] (Veterans program) [facility] Treatment/SEMO Voutyxfjig-[phone] Akngrexanw-[phone] Hatnq-[phone] [phone] [facility] [phone] [address] [place] [address] [facility]-(women, women, children/daycare) [phone] [address] [place] [address] OUTPATIENT [facility] FUNDED FACILITIES [facility] [phone] [address] [place] [address] [facility] [phone] (must have medicaid) [address] , [address] [place] [address] [facility] Must Enroll at [facility] [phone] [address] [place] [address] [address] [place] [address] [facility] Multiple Locations [phone] [facility] Multiple Locations [phone] AA /Jeff [phone] Narcotics Anonymous [phone] ANT PRINT OPERATOR documented in this encounter ED Notes * Reyna Walker RN - 08/10/2020 9:49 AM CST Pt refused tylenol. Called and spoke with [facility] from [facility] ANT PRINT OPERATOR * Reyna Walker RN - 08/10/2020 9:38 AM CST [facility] called. Pt denies si or hi. ANT PRINT OPERATOR * Shanell Huang RN - 08/10/2020 8:47 AM CST Patient arrives with mom, took shrooms with friend on . Went to work yesterday and left because he wasn't feeling well. Patient may have done shrooms yesterday too. Mom reports he has a history of drinking and marijuana use as well. Patient is having a bad trip. No medical complaints. Patient in no distress. ANT PRINT OPERATOR * Shanell Huang RN - 08/10/2020 8:45 AM CST TB Screen instructions: Complete the TB screening by asking your patient/family about symptoms/risk factors. Delete symptoms/risk factors that do not apply to your patient. Add up numbers in front of relevant symptoms/risk factors and type in total below. Symptoms/complaints: ??? 5=Hemoptysis ??? 3=Cough (prolonged 3 weeks or more) ? ? 2=Unexplained weight loss (>10 lbs) ??? 2=Fever, chills, and/or night sweats ??? 0=None Risk Factors: ??? 4=Active TB now or any time in the past (even if on medication) ??? 2=Homeless ??? 2=Foreign born ??? 2=New TB skin test positive (within 2 years) or history of recent TB exposure ??? 0=None Total symptom/risk factor values=0 If total is 5 or greater, initiate Airborne Isolation and contact provider. ANT PRINT OPERATOR * Bandar Olivas MD - 08/10/2020 8:39 AM CST History of Present Illness Primary Care Doctor: No primary care provider on file. History obtained from: Patient and Mother Patient accompanied by: Mother Limitations to history/exam: Altered Mental Status Chief Complaint: Ingestion Chief complaint and narrative put in by triage nurse. Hector Alonzo is a 20 y.o. male who presents for evaluation of drug ingestion. Pt states that he took mushrooms a while back but can not remember when he last took them. Pt states he uses the mushrooms to get high. His mother states that he took them on and has been acting loopy and out of it since then. He has not been improving according to his mother. Pt smokes marijuana daily, drinks alcohol occasionally, and uses nicotine. Pt reports some occasional anxiety, a headache, and nausea for the last couple days. He is unsure if he has vomited. Denies any SI or HI today. Pt states he feels like he was drugged with fentanyl but does not know why. Mom denies similar episodes in the past. No home medications. She reports she called EMS due to odd behaviors. After EMS arrival she became aware of pt's mushroom use. Onset: Severity: Mild Duration/Frequency: Constant Progression: Unchanging Associated symptoms: Anxiety, Nausea, Vomiting, Headache Relevant Medical History Past Medical History: Past Medical History: Diagnosis Date ??? Patient denies medical problems Past Surgical History: Past Surgical History: Procedure Laterality Date ??? PT DENIES RELEVANT SURGICAL HISTORY Home Medications: No current facility-administered medications on file prior to encounter. No current outpatient medications on file prior to encounter. Allergies: No Known Allergies Social History: Social History Tobacco Use ??? Smoking status: Current Some Day Smoker ??? Smokeless tobacco: Never Used Substance Use Topics ??? Alcohol use: Yes Frequency: 2-4 times a month ??? Drug use: Yes Types: Marijuana Comment: Prisca Family History: No family history on file. Review of Systems Review of Systems Constitutional: Negative for chills and fever. HENT: Negative for congestion. Eyes: Negative for visual disturbance. Respiratory: Negative for cough and shortness of breath. Cardiovascular: Negative for chest pain. Gastrointestinal: Positive for nausea and vomiting. Negative for abdominal pain. Genitourinary: Negative for dysuria. Musculoskeletal: Negative for neck pain. Skin: Negative for rash. Neurological: Positive for headaches. Negative for light-headedness. Psychiatric/Behavioral: Negative for confusion. The patient is nervous/anxious. Physical Exam BP: 134/84 (08/10/20840), Heart Rate: 85 bpm (08/10/20840), Resp: 19 (08/10/20840), Temp: 98.4 ??F (36.9 ??C) (08/10/20840), Temp src: Oral (08/10/20840), SpO2: 97 % (08/10/20840), Height: 5' 10 (177.8 cm) (08/10/20840), Weight: 68 kg (150 lb) (08/10/20840), BMI (Calculated): 21.52(08/10/20840) I have reviewed the triage notes, nursing notes, and vital signs. Constitutional: No acute distress, sitting in chair comfortably, Head: Normocephalic, atraumatic ENT: right and left external ear normal in appearance Eyes: pupils dilated bilaterally but equal in size, reactive, EOMI, no nystagmus, Neck: Supple, trachea midline Heart/Chest: RRR, 2+ radial pulses Resp: CTAB, non-labored, Abd: Soft, non-tender, /Rectal: deferred MSK: no lower extremity edema, legs symmetric in size Skin: warm, dry, Neuro: Alert, moving all 4 extremities, clear speech, oriented to self, hospital, and city Psych: calm, cooperative, anxious, appears to be responding to internal stimuli, denies SI and HI Medical Decision Making and ED Course Medical Decision Making: Problem(s): odd behaviors Plan: symptomatic therapies and addiction referral -Spoke with RANJAN Luevano. She will set the patient up with the appropriate outpatient resources for drug rehab and psychiatric clinics. 20-year-old male here for odd behavaiors for the past few days. He is overall well appearing. Mom called EMS due to abnormal behaviors and subsequently became aware of pt's recent psilocybin use. History and exam consistent with substance induced mood d/o. Discussed expected course of psilocybin ingestion. Discussed possible inadvertent ingestion of amphetamine or cocaine given pt's paranoia and dilated pupils. Nursing arranged for [facility] to evaluate patient. Offer psych eval. Mother pleasantly declining and requesting medication for pt. Ativan given. Pt observed for few hours and has remained stable. Reassessed him. Again offered psych eval. His mother says she has contact info for addiction center. She feels reassured that the behaviors are likely related to drug ingestion. I discussed with [facility] counselor who provided psych and drug rehab/addiction resource. All questions addressed. Mom feels comfortable going home with pt now. Encouraged refraining from drug use. Return precautions discussed. They deny further questions or concerns and are comfortable with plan. Procedure(s): Final Diagnoses: Final diagnoses: [F19.94] Substance induced mood disorder (Primary) Disposition: Discahrge Studies and Interpretation Pulse Oximetry (independent interpretation by Jessica Olivas MD): Saturation: 97% on Room Air Interpretation: Normal Rhythm Strip (independent interpretation by Jessica Olivas MD): Rhythm: Sinus rhythm Ventricular Rate: 85 Interpretation: Normal Imaging (pertinent imaging was independently reviewed by Jessica Olivas MD): No orders to display Lab: (pertinent labs reviewed by Jessica Olivas MD), (Also see ED Course): Labs Reviewed - No data to display Meds (See MAR): Medications LORazepam (ATIVAN) tablet 1 mg (1 mg Oral Given 08/10/20 0945) LORazepam (ATIVAN) tablet 1 mg (1 mg Oral Given 08/10/20 1230) Note: This H+P was created with the aid of dictation software, thus there may be some word substitutions and/or other grammatical errors. This note is prepared by Aaron Yeung acting as a scribe for Bandar Olivas MD. The scribe's documentation has been prepared under my direction and personally reviewed by me in its entirety. I confirm that the note above accurately reflects all work, treatment, procedures, and medical decision making performed by me. Bandar Olivas MD Emergency Medicine ANT PRINT OPERATOR documented in this encounter Plan of Treatment Not on file documented as of this encounter Visit Diagnoses Diagnosis Substance induced mood disorder- Primary Drug-induced mood disorder documented in this encounter Administered Medications Inactive Administered Medications - up to 3 most recent administrations Medication Order MAR Action Action Date Dose Rate Site LORazepam (ATIVAN) tablet 1 mg 1 mg, Oral, ONE TIME ONLY, 1 dose, On 08/10/20 at 0945, Routine Given 08/10/2020 9:45 AM INSTANT PRINT OPERATOR 1 mg LORazepam (ATIVAN) tablet 1 mg 1 mg, Oral, ONE TIME ONLY, 1 dose, On 08/10/20 at 1230, Routine Given 08/10/2020 12:30 PM INSTANT PRINT OPERATOR 1 mg documented in this encounter Active and Recently Administered Medications Times are shown in INSTANT PRINT OPERATOR. Scheduled Medication Order 08/08/2020 08/09/2020 08/10/2020 acetaminophen (TYLENOL) tablet 1,000 mg 1,000 mg, Oral, ONE TIME ONLY, 1 dose, On 08/10/20 at 0945, Routine 0945 (Refused - Prov ider: Reyna Walker RN) LORazepam (ATIVAN) tablet 1 mg (COMPLETED) 1 mg, Oral, ONE TIME ONLY, 1 dose, On 08/10/20 at 0945, Routine 0945 (Given - Provid er: Reyna Walker RN) LORazepam (ATIVAN) tablet 1 mg (COMPLETED) 1 mg, Oral, ONE TIME ONLY, 1 dose, On 08/10/20 at 1230, Routine 1230 (Given - Provid er: Yecenia Purcell RN) documented in this encounter
--- OUTSIDE RECORDS SUMMARY | 2024-09-27 20:40 | XMS_ITS | Encounter Summary ---
Author Organization [facility] Address [address] [place] [address] Care Team Providers Care White Goods Appliance Tech Name Role Phone Lulu Orr MD Unavailable Donna Pacheco MD Primary Care Provider [phone] Reason for Visit * Reason Comments Complete Physical Exam well child Encounter Details Date Type Department Care Team (Late st Contact Info) Description 02/24/2018 2:30 PM CDT Office Visit [facility] Medical [facility] - Pediatrics [address] [place] [phone] Donna Pacheco MD [address] [place] [phone] Encounter for routine child health examination with abnormal findings (Primary Dx); Screening cholesterol level; Need for vaccination; Nevus; Juvenile idiopathic scoliosis of thoracic region Social History Tobacco Use Types Packs/Day Years [...] Pulse 69 02/24/2018 2:16 PM CDT Temperature - - Respiratory Rate - - Oxygen Saturation - - Inhaled Oxygen Concentration - - Weight 59.1 kg (130 lb 6.4 oz) 02/24/2018 2:16 P M CDT Height 175.9 cm (5' 9.25 ) 02/24/2018 2:16 PM CD T Body Mass Index 19.12 02/24/2018 2:16 PM CDT Body Mass Index Percentile 20.30% 02/24/2018 2:1 6 PM CDT Growth Chart: [facility] (Boys, 2-2 0 Years) documented in this encounter Patient Instructions * Patient Instructions* Heather Jasso RN - 02/24/2018 2:18 PM CDT YOUR GROWING CHILD: 15 TO 17 YEARS Child???s Name: Hector Alonzo Today???s Date: 02/24/2018 BP 120/75 Pulse 69 Ht 1.759 m (5' 9.25 ) Wt 59.1 kg (130 lb 6.4 oz) BMI 19.12 kg/m2 Wt Readings from Last 1 Encounters: 02/24/18 59.1 kg (130 lb 6.4 oz) (30 %, Z= -0.51)* * Growth percentiles are based on CDC 2-20 Years data. 30 %ile (Z= -0.51) based on CDC 2-20 Years sexgpn-gcb-nzu data using vitals from 02/24/2018. Ht Readings from Last 1 Encounters: 02/24/18 1.759 m (5' 9.25 ) (54 %, Z= 0.10)* * Growth percentiles are based on CDC 2-20 Years data. 54 %ile (Z= 0.10) based on CDC 2-20 Years jewglyg-fia-xwz data using vitals from 02/24/2018. IMMUNIZATIONS One of the best ways to [...] dishes 2. Prepare simple family meals 3. [place] leaves 4. Take the trash out for [...] The texts and phone calls can WAIT. [place] law, effective May 31, 2006, says your child must be in a booster seat if they are ages 4 through 7 who weigh at least 40 pounds, unless they are 80 pounds or 4???9?? tall. DO NOT ALLOW ANYONE TO SMOKE AROUND YOUR CHILD. DIET Make sure that your child is eating breakfast in the morning school supervisor. Encourage them to eat at least 3 [...] Where can I go for more information? [place] [employer] ( ) www.aap.org, HealthyChildren.org www.healthychildren.org Website and free downloadable andrews for smartphones: http://www.Aunt Group/ and http://www.TouristR/ Immunization History Administered Date(s) Administered ??? DTaP 2001, 2001, 2001, 07/05/2002, 02/19/2006 ??? FLU VACCINE QUAD IIV4 SPLIT IM 08/13/2016 ??? FLU VACCINE QUAD IIV4 SPLIT PF IM 08/01/2017 ??? FLU VACCINE TRI IIV3 SPLIT IM 10/01/2011 ??? HEP A PEDS 2 DOSE 04/12/2014, 10/30/2014 ??? HEP B VACCINE, PED/ADOL 2001, 2001, 2001 ??? HIB BOOSTER 2001, 2001, 2001, 07/05/2002 ??? Human Papilloma Virus Quadrivalent Vaccine 04/12/2014, 06/18/2014, 10/30/2014 ??? Influenza 09/30/2006, 08/15/2007, 07/28/2008 ??? Influenza A (H1n1) Vaccine 08/22/2009, 10/02/2009 ??? Influenza Nasal 08/05/2010, 07/23/2012 ??? MENINGOCOCCAL CONJUGATE (MCV4) 04/12/2014, 02/24/2018 ??? MMR 07/05/2002, 02/19/2006 ??? PNEUMOCOCCAL CONJ, PEDS 2001, 01/09/2002, 04/12/2002, 03/26/2003 ??? POLIO IPV 2001, 2001, 04/12/2002, 02/19/2006 ??? PPD 03/26/2003, 02/19/2006 ??? Tdap 05/06/2012 ??? VARICELLA 07/05/2002 Office Visit on 02/24/18 LIPID PROFILE+GLUCOSE - POINT OF CARE (AMB) Result Value Ref Range QC Verified Yes Yes Total Cholesterol 143 200 mg/dl HDL 35 mg/dL Triglycerides 99 130 mg/dL LDL 88 130 mg/dl Non-HDL Cholesterol 108 145 mg/dL Total Cholesterol/HL Ratio 4.1 6.0 Glucose 125 70 - 126 mg/dL documented in this encounter Progress Notes * Donna Pacheco MD - 02/24/2018 3:06 PM CDT Adolescent WCC Reviewed Nurse's Adolescent Note PHX: scoliosis-saw Dr. Goodwin last May, due for follow up at 2 yr Medications: none ROS Stomachaches, Headaches: No Constipation/Diarrhea: No Sleep: no issues, no snoring Girls: Menses N/A Social History: School: [employer], Grade will be a Senior in May. Doing well in school: Yes Home: lives with both parents and siblings Activity/Exercise: poor Alcohol: denies Drugs:denies Sex:denies Smoking:denies Vqvwgjdfjc-UGK-3 score : positive -see screening section Physical Exam: Wt Readings from Last 3 Encounters: 02/24/18 59.1 kg (130 lb 6.4 oz) (30 %, Z= -0.51)* 10/15/17 57.3 kg (126 lb 4 oz) (28 %, Z= -0.58)* 05/12/17 57.8 kg (127 lb 6.8 oz) (36 %, Z= -0.35)* * Growth percentiles are based on CDC 2-20 Years data. Ht Readings from Last 3 Encounters: 02/24/18 1.759 m (5' 9.25 ) (54 %, Z= 0.10)* 05/12/17 1.753 m (5' 9 ) (58 %, Z= 0.21)* 01/22/17 1.74 m (5' 8.5 ) (56 %, Z= 0.14)* * Growth percentiles are based on CDC 2-20 Years data. 30 %ile (Z= -0.51) based on CDC 2-20 Years lgwrps-sjc-que data using vitals from 02/24/2018. 54 %ile (Z= 0.10) based on CDC 2- Years ayamegb-jjg-lvo data using vitals from 02/24/2018. BP 120/75 Pulse 69 Ht 1.759 m (5' 9.25 ) Wt 59.1 kg (130 lb 6.4 oz) BMI 19.12 kg/m2 Blood pressure percentiles are 54.2 % systolic and 73.3 % diastolic based on NHBPEP's 4th Report. GENERAL: Alert, NAD EYES: PERRLA, EOMI, red [...] range of motion of all extremities SPINE: +thoracic scoliosis SKIN: 1-1.5 cm brown nevus to right inner thigh, raised area centrally. 6-8 mm Flat, brown nevus toright inguinal region Impression: Well child with normal growth and development. 2. Moles 3. scoliosis Plan: Anticipatory guidance discussed included nutrition, safety, dentist, exercise. Vaccines: Meningococcal BMI> 85%: No Classification of weight: healthy Blood Pressure interpretation:normal Office Visit on 02/24/18 LIPID PROFILE+GLUCOSE - POINT OF CARE (AMB) Result Value Ref Range QC Verified Yes Yes Total Cholesterol 143 200 mg/dl HDL 35 mg/dL Triglycerides 99 130 mg/dL LDL 88 130 mg/dl Non-HDL Cholesterol 108 145 mg/dL Total Cholesterol/HL Ratio 4.1 6.0 Glucose 125 70 - 126 mg/dL 2. Since mole has increased in size and now has raised area, advised to see derm. 3. 1 yr follow up in May. Follow up in 1 year. * Heather Jasso RN - 02/24/2018 2:19 PM CDT Nurse Adolescent Screen Parental/Patient Concerns: None Diet: Milk does not drink milk regularly. Vegetables: fair, fruits: good, Dental: regular dental visits? Yes documented in this encounter Plan of Treatment Not on file documented as of this encounter Goals Goal Patient Goal Type Associated Problems Recent Progress Patient-Stated? Author Use safety retraint in car Lifestyle Not on track( 018 2:17 PM CDT) No Alina Ruffin RN documented as of this encounter Procedures Procedure Name Priority Date/Time Associated Diagnosis Comments LIPID PROFILE+GLUCOSE - POINT OF CARE (AMB) Routine 02/24/2018 Screening cholesterol level Encounter for routine child health examination with abnormal findings documented in this encounter Results * LIPID PROFILE+GLUCOSE - POINT OF [...] documented in this encounter Visit Diagnoses Diagnosis Encounter for routine child health examination with abnormal findings- Primary Routine infant or child health check Screening cholesterol level Screening for lipoid disorders Need for vaccination Need for prophylactic vaccination and inoculation against unspecified single disease Nevus Benign neoplasm of skin, site unspecified 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
--- OUTSIDE RECORDS SUMMARY | 2024-09-27 20:40 | XMS_ITS | Encounter Summary ---
Author Organization [facility] Address [address] [place] [address] Care Team Providers Care Chisel Worker Name Role Phone Lulu Orr MD Unavailable Lulu Orr MD Primary Care Provider [phone] Reason for Visit * Reason Comments Imm Inj Encounter Details Date Type Department Care Team (Latest Contact Info) Description 10/01/2011 9:25 AM MAILROOM ASSOCIATE Clinical Support [facility] Medical [facility] - Pediatrics [address] [place] [phone] Need for prophylactic vaccination and inoculation [...] - - Temperature 36.8 ??C (98.2 ??F) 10/01/2011 10:[address] Respiratory Rate - - Oxygen Saturation - - Inhaled Oxygen Concentration - - Weight - - Height - - Body Mass Index - - documented in this encounter Plan of Treatment Not on file documented as of this encounter Visit Diagnoses Diagnosis Need for prophylactic vaccination and inoculation against influenza- Primary documented in this encounter Care Teams Chisel Worker Relationship Specialty Start Date End Date Lulu Orr MD PCP - Pediatrics 10/29/09 Lulu Orr MD PCP - General Pediatrics 09/30/11 04/02/14 documented as of this encounter
--- OUTSIDE RECORDS SUMMARY | 2024-09-27 20:40 | XMS_ITS | Encounter Summary ---
Author Organization [facility] Address [address] [place] [address] Care Team Providers Care Mold Capper Name Role Phone Lulu Orr MD Unavailable Donna Pacheco MD Primary Care Provider [phone] Reason for Visit * Reason Onset Date Comments Sore Throat 02/17/2017 Encounter Details Date Type Department Care Team (Late st Contact Info) Description 02/17/2017 Telephone [facility] - Pediatrics [address] [place] [phone] Donna Pacheco MD [address] [place] [phone] Sore Throat Social History Tobacco Use Types Packs/Day Years [...] encounter Miscellaneous Notes * Telephone Encounter - Donna Pacheco MD - 02/17/2017 11:34 AM CDT Ok. * Telephone Encounter - Heather Jasso RN - 02/17/2017 10:45 AM CDT Left message to call office. If unable to bring in today can see tomorrow. If unable to bring in today or tomorrow due to finals, may take him to [facility] tonight. * Telephone Encounter - [place] - 02/17/2017 10:37 AM CDT Hector has swollen tonsils and white stuff on tonsils. Mom says that he cannot come in today, due to finals. Unsure of fever, thermometer is not working. documented in this encounter Plan of Treatment Not on file documented as of this encounter Goals Goal Patient Goal Type Associated Problems Recent Progress Patient-Stated? Author Use safety retraint in car Lifestyle Not on track( 018 2:17 PM CDT) No Alina Ruffin RN documented as of this encounter Visit Diagnoses Not on filedocumented in this encounter Care Teams Mold Capper Relationship Specialty Start Date End Date Lulu Orr MD PCP - Pediatrics 10/29/09 Donna Pacheco MD PCP - General Pediatrics 04/09/15 documented as of this encounter
--- OUTSIDE RECORDS SUMMARY | 2024-09-27 20:40 | XMS_ITS | Encounter Summary ---
Author Organization [facility] Address [address] [facility] [place] [address] Care Team Providers Care Compressor Station Operator Name Role Phone Lulu Orr MD Unavailable Reason for Visit * Reason Comments Sore Throat for one day Encounter Details Date Type Department Care Team (Latest Contact Info) Description 12/25/2009 11:10 AM CDT Office Visit [facility] - Pediatrics [address] [place] [address] [address] [place] [phone] Lulu Orr MD [address] [phone] Streptococcal Sore Throat (Primary Dx) Social History Tobacco Use Types Packs/Day Years Used Date Smoking Tobacco: Never Assessed Sex and Gender Information Value Date Recorded Sex Assigned at Not on file Gender Identity Not on file Sexual Orientation Not on file documented as of this encounter Progress Notes * Lulu Orr MD - 12/25/2009 11:16 AM CDT SUBJECTIVE: Hector Alonzo is a 9 y.o.brought by father who complains of sore throat for 1 day(s). Fever: Yes, 100.3 yesterday Headache:No Stomach ache:No URI symptoms: No OBJECTIVE: There were no vitals taken for this visit. General appearance: alert, well appearing, and in [...] SCREEN - POINT OF CARE (AMB) Routine 12/25/2009 Streptococcal Sore Throat documented in this encounter Results * (ABNORMAL) STREP A SCREEN - POINT OF CARE (AMB) (12/25/2009) Strep A Rapid POCT positive NEGATIVE - POSITVE Strep A Internal Control NEGATIVE - POSITIVE ENTIRE THROAT (SURFACE REGION OF NECK) / Unknown Lulu Orr MD LAB - POINT OF CARE ORDERABLES documented in this encounter Visit Diagnoses Diagnosis Streptococcal sore throat- Primary documented in this encounter Care Teams Compressor Station Operator Relationship Specialty Start Date End Date Lulu Orr MD PCP - Pediatrics 10/29/09 documented as of this encounter
--- OUTSIDE RECORDS SUMMARY | 2024-09-27 20:48 | XMS_ITS | Continuity of Care Document ---
Author Organization [facility] Address [address] [place] [address] Phone Care Team Providers Care Dishwasher Busser Name Role Phone Michael Rodrigez MD Unavailable Unavailable Advance Directives Directive Yes / No Effective Date File Name No Information Encounters Encounter Description Practice Location Reason(s) For Visit Diagnoses Date Provider Providers Copied on Encounter [facility], [address], [place], [place], [id number], [place] tel:[phone] [facility] NASAL & SINUS DIS NECCHRONIC SINUSITIS NOS Elia Rodriguez. [address], [id number], [place]. tel:[phone] Family History Family Member Type Diagnosis Age At Onset No Information Payers Payer name Insurance type Covered libertarian ID Authoriza tion(s) No Information Social History [...]
== END 2024-09-18 15:03 | disposition home or self-care (01) ==
PROVIDERS: Emergency Provider Nurse Practitioner; PCP Physician Assistant
DX: L84 Corns and callosities (principal); F17.290 Nicotine dependence, other tobacco product, uncomplicated; F12.90 Cannabis use, unspecified, uncomplicated
CPT/HCPCS: 99211; 99213; G0463